=== PATIENT | female | born 1935 | race Caucasian/White ===

== ENCOUNTER 2021-03-01 01:20 | Inpatient (IN) | payer MEDICARE, SELFPAY ==
[2021-03-01] VITALS (23 sets, daily range): BP systolic 116–191; BP diastolic 45–83; PULSE 55–92; RESP 16–30; TEMP 35.6–36.8; O2SAT 89–100; BMI 27.5; BMI 27.4; BMI 27.8; BMI 27.7
--- NOTE | 2021-03-01 01:21 | ECG_ITS ---
APPROVED REPORT Exam: Resting ECG HR:80 bpm ECG Measurements Heart Rate 80 AXES AK 242 P 71 QRSd 162 QRS 99 QT 450 T -50 QTc 519 Conclusion Electronic ventricular pacemaker Electronically signed by : Santana Thorne, 03/01/2021 17:34:41
--- NOTE | 2021-03-01 02:14 | XR_ITS ---
PROCEDURE: XR CHEST PORTABLE CLINICAL HISTORY: SOB, low sats, recent PEs COMPARISON: No exams were available for comparison FINDINGS: There is a bipolar pacemaker present left subclavian approach. Normal heart size. Bilateral lower lobe pneumonia and/or atelectatic change. Small left pleural effusion. Faint increased density is present in the midlung zones on both sides No acute bony abnormalities. IMPRESSION: Bilateral pneumonia with small left pleural effusion Dictated by: Joey Elliott MD 03/01/2021 05:52 Joey Elliott MD in [place] 03/01/2021 05:52
[2021-03-01 02:16] LABS: ABG Oxygen Saturation 81 % (90-100); ABG PH 7.38 mmol/L (7.35-7.45); ABG TCO2 45.3 mmhg (23-27)
[2021-03-01 02:17] LABS: Allen's Test Acceptable
[2021-03-01 02:18] LABS: Oxygen 3L %; Source Right Radial
[2021-03-01 02:20] LABS: ABG PCO2 73.9 mmhg (35.0-45.0)
[2021-03-01 02:27] LABS: Basophils % 0.4 % (0.1-2.0); Eosinophils # 0.2 K/mm3 (0.0-0.4); Eosinophils % 2.5 % (0.1-12.0); Hematocrit 31.2 % (37.0-47.0); Hemoglobin 9.5 g/dL (12.2-16.2); Lymphocytes # 0.8 K/mm3 (0.7-4.5); Lymphocytes % 8.3 % (10-50); Mean Corpuscular HGB Conc 30.5 g/dL (31.8-35.4); Mean Corpuscular Hemoglobin 29.6 pg (27.0-31.2); Mean Corpuscular Volume 97.2 fl (81-99); Mean Platelet Volume 8.2 fl (7.4-10.4); Monocytes # 0.7 K/mm3 (0.1-1.0); Monocytes % 7.8 % (1.7-9.3); Neutrophils # 7.4 K/mm3 (1.8-7.8); Neutrophils % 80.9 % (37.0-80.0); Platelet Count 253 K/mm3 (142-424); Red Blood Count 3.21 M/mm3 (4.20-5.40); Red Cell Distribution Width 15.5 % (11.5-17.5); White Blood Count 9.1 K/mm3 (4.8-10.8)
[2021-03-01 02:35] LABS: Alanine Aminotransferase 15 U/L (12-78); Alkaline Phosphatase 66 U/L (38-126); Aspartate Amino Transferase 23 U/L (14-36); Bilirubin,Total 0.3 mg/dl (0.2-1.3); Blood Urea Nitrogen 13 mg/dl (7-17); Chloride 88 mmol/L (98-107); Creatinine Clearance Estimated 49 mL/min (50-200); Estimated Glomerular Filt Rate 80 ml/min (>60); GFR (African American) 96 ML/MIN (>60); Glucose 115 mg/dl (74-100); Lactic Acid 0.7 mmol/L (0.7-2.1); Potassium 3.8 mmoL/L (3.5-5.1); Sodium 133 mmol/L (136-145)
[2021-03-01 02:40] LABS: C-Reactive Protein 105.4 mg/L (0-4)
[2021-03-01 02:46] LABS: NT Pro Brain Natriuretic Pep. 4650 pg/mL (0-450)
[2021-03-01 02:46] LABS: Microscopic,Cath URINE MICROSCOPIC (MICROSCOPIC)
[2021-03-01 02:49] LABS: Appearance,Urine/Cath CLEAR (Clear); Bilirubin,Cath Negative (Negative); Blood, Urine/Cath Negative (Negative); Color,Urine/Cath YELLOW (Yellow); Glucose,Urine/Cath (UA) Negative (Negative); Ketones,Urine/Cath Negative (Negative); Leukocyte Esterase,Cath Negative (Negative); Nitrate,Cath Negative (Negative); Protein,Urine/Cath 1+ (Negative); Specific Gravity, Urine/Cath >= 1.030 (1.005-1.030); Urobilinogen,Cath 0.2 EU/dl (0.2)
[2021-03-01 02:53] LABS: Anion Gap 5.8 mEq/L (5-15); Procalcitonin 0.054 ng/mL (0.0-2.0); Troponin I < 0.01 ng/ml (0.00-0.034)
[2021-03-01 02:54] LABS: Carbon Dioxide 43 mmol/L (22.0-30.0)
[2021-03-01 03:02] LABS: Bacteria,Urine/Cath TRACE /lpf; Mucus,Urine/Cath 1+ /lpf; Yeast,Urine/Cath 1+
[2021-03-01 03:03] LABS: Erythrocyte Sedimentation Rate > 140 mm/hr (0-30)
--- NOTE | 2021-03-01 03:14 | PC.NURSE ---
Quentin confirmed with Darinel in Pharmacy
[2021-03-01 03:43] LABS: Adenovirus,PCR Not Detected (NotDetected); Bordetella Pertussis Not Detected (NotDetected); Chlamydophila Pneumoniae, PCR Not Detected (NotDetected); Coronavirus 19, PCR Not Detected (NotDetected); Coronavirus 229E Not Detected (NotDetected); Coronavirus NL63 Not Detected (NotDetected); Coronavirus OC43 Not Detected (NotDetected); Coronovirus HKU1,PCR Not Detected (NotDetected); Human Metapneumovirus Not Detected (NotDetected); Influenza A, PCR Not Detected (NotDetected); Influenza AH1, 2009 Not Detected (NotDetected); Influenza AH1, PCR Not Detected (NotDetected); Influenza AH3,PCR Not Detected (NotDetected); Influenza B, PCR Not Detected (NotDetected); Mycoplasma Pneumoniae, PCR Not Detected (NotDetected); Parainfluenza 1, PCR Not Detected (NotDetected); Parainfluenza 2, PCR Not Detected (NotDetected); Parainfluenza 3, PCR Not Detected (NotDetected); Parainfluenza 4, PCR Not Detected (NotDetected); Respiratory Syncytial Virus Not Detected (NotDetected); Rhinovirus/Enterovirus Not Detected (NotDetected)
[2021-03-01 04:07] LABS: ABG HCO3 39.4 mmhg (22.0-26.0); ABG Oxygen Saturation 96 % (90-100); ABG PH 7.36 mmol/L (7.35-7.45); ABG PO2 80.7 mmhg (80-100); ABG TCO2 41.6 mmhg (23-27)
[2021-03-01 04:08] LABS: Allen's Test y; Oxygen 45 %; Pressure Support 8
[2021-03-01 04:09] LABS: ABG PCO2 71.4 mmhg (35.0-45.0)
[2021-03-01 05:00] LABS: Troponin I < 0.01 ng/ml (0.00-0.034)
--- NOTE | 2021-03-01 05:30 | HMH.EDAMS ---
ED Disposition Clinical Impression: Acute exacerbation of chronic obstructive airways disease, Severe sepsis with acute organ dysfunction, Pacemaker Respiratory failure with hypercapnia Qualifiers: Chronicity: acute on chronic Qualified Code(s): J96.22 - Acute and chronic respiratory failure with hypercapnia Congestive heart failure Qualifiers: Heart failure type: unspecified Heart failure chronicity: acute on chronic Qualified Code(s): I50.9 - Heart failure, unspecified UTI (urinary tract infection) Qualifiers: Urinary tract infection type: site unspecified Hematuria presence: without hematuria Qualified Code(s): N39.0 - Urinary tract infection, site not specified Disposition: Admitted As Inpatient Condition on Discharge: Serious Referrals: Teddy Rudd [Primary Care Provider] - - Critical Care Critical Care Time: Yes Attestation: On 03/01/21, the high probability of a clinically significant, sudden or life threatening deterioration of the following system(s) required my full and direct attention, intervention and personal management. The time I documented below is in addition to time spent performing reported procedures but includes the following listed in this critical care notation. Total Critical Care Time: 60 Vital system(s) involved:: Respiratory Failure My critical care processes included: Assessment & monitoring of V/S, Initial and Re-exams, Data Review/Interpretation, Coordinating Care, Medication Orders and management, Documentation Medical Decision Making - Medical Records Medical records reviewed: Yes: I reviewed the patient's medical records. - Rogers Inquiry Pt receiving controlled substance: No Vital Signs: 03/01/21 01:20 03/01/21 02:00 03/01/21 02:30 Temperature 97.7 F 96.0 F L Temperature Source Oral Rectal Pulse Rate 60 84 Pulse Rate [Right] 60 Respiratory Rate 16 21 23 Blood Pressure 157/62 H 155/71 H Blood Pressure [Right Arm] 116/47 L Blood Pressure Mean 73 82 Blood Pressure Mean [Right Arm] 70 Blood Pressure Source [Right Arm] Automatic Cuff 02 Sat by Pulse Oximetry 96 89 L 100 Oxygen Delivery Method Nasal Cannula Nasal Cannula BiPAP Oxygen Flow Rate (LPM) 4 3 03/01/21 03:01 03/01/21 03:31 03/01/21 04:00 Temperature 96.8 F L Temperature Source Rectal Pulse Rate 72 62 63 Pulse Rate [Right] Respiratory Rate 22 23 24 Blood Pressure 120/45 L 122/52 L 119/42 L Blood Pressure [Right Arm] Blood Pressure Mean 70 60 53 Blood Pressure Mean [Right Arm] Blood Pressure Source [Right Arm] 02 Sat by Pulse Oximetry 97 95 Oxygen Delivery Method BiPAP BiPAP Oxygen Flow Rate (LPM) 03/01/21 04:30 Temperature Temperature Source Pulse Rate 62 Pulse Rate [Right] Respiratory Rate 24 Blood Pressure 138/53 L Blood Pressure [Right Arm] Blood Pressure Mean 63 Blood Pressure Mean [Right Arm] Blood Pressure Source [Right Arm] 02 Sat by Pulse Oximetry 94 L Oxygen Delivery Method BiPAP Oxygen Flow Rate (LPM) - Lab Data Lab results reviewed: Yes: I reviewed the patient's lab results. Lab Results 03/01/21 01:58: Urine Color Yellow, Urine Appearance Clear, Urine pH 6.0, Ur Specific [place] >= 1.030, Urine Protein 1+, Urine Glucose (UA) Negative, Urine Ketones Negative, Urine Blood Negative, Urine Nitrate Negative, Urine Bilirubin Negative, Urine Urobilinogen 0.2, Ur Leukocyte Esterase Negative, Urine WBC 3-5, Urine Bacteria Trace, Urine Yeast 1+ 03/01/21 02:14: Specimen Source Right radial, O2 % 3l, ABG pH 7.38, ABG pCO2 73.9 H, ABG pO2 45.0 L, ABG HCO3 43.0 H, ABG Total CO2 45.3 H, ABG O2 Saturation 81 L*, ABG Base Excess 18.0 H, Joey Test Acceptable 03/01/21 02:15: WBC 9.1, RBC 3.21 L, Hgb 9.5 L, Hct 31.2 L, MCV 97.2, MCH 29.6, MCHC 30.5 L, RDW 15.5, Plt Count 253, MPV 8.2, Neut % (Auto) 80.9 H, Lymph % (Auto) 8.3 L, [place] % (Auto) 7.8, Eos % (Auto) 2.5, Baso % (Auto) 0.4, Neut # (Auto) 7.4, Lymph # (Auto) 0.8, [place] # (Auto) 0.7, Eos # (Auto) 0.2, B
--- NOTE | 2021-03-01 05:40 | PC.NURSE ---
Dr. mcallister talking with Dr. Enriquez
--- NOTE | 2021-03-01 05:40 | PC.NURSE ---
Notified retail warehouse supervisorJeanine, for bed assignment
--- NOTE | 2021-03-01 06:08 | PC.NURSE ---
pt's daughter set up password- [email or web address]
--- NOTE | 2021-03-01 06:31 | PC.NURSE ---
Called 2nf fl and gave report to Italia Velasco RN
--- NOTE | 2021-03-01 06:41 | PC.WOUNDNOTE ---
PT ARRIVED TO FLOOR VIA STRETCHER FROM ED W/STAFF AT 0640
--- NOTE | 2021-03-01 07:24 | P.CONPHA_ITS ---
[facility] Pharmacy VTE Monitoring - Patient Demographics Admission date: 03/01/21 Report Date: 03/01/21 Time: 07:24 Allergies/Adverse Reactions: Patient Allergies amlodipine Allergy (Verified 03/01/21 06:58) bacitracin [From Neosporin ([id number])] Allergy (Verified 03/01/21 06:58) cephalexin [From Keflex] Allergy (Verified 03/01/21 06:58) hydrochlorothiazide Allergy (Verified 03/01/21 06:58) irbesartan Allergy (Verified 03/01/21 06:58) Latex, Natural Rubber Allergy (Verified 03/01/21 06:58) neomycin [From Neosporin ([id number]-[id number])] Allergy (Verified 03/01/21 06:58) oxycodone [From Percocet] Allergy (Verified 03/01/21 06:58) Penicillins Allergy (Verified 03/01/21 06:58) polymyxin B [From Neosporin ([id number])] Allergy (Verified 03/01/21 06:58) Sulfa (Sulfonamide Antibiotics) Allergy (Verified 03/01/21 06:58) telmisartan Allergy (Verified 03/01/21 06:58) Height: 1.6 m Weight: 71.305 kg Patient Problems: Current Active Problems Acute exacerbation of chronic obstructive airways disease (Acute) Respiratory failure with hypercapnia (Acute) Congestive heart failure (Acute) Severe sepsis with acute organ dysfunction (Acute) UTI (urinary tract infection) (Acute) Pacemaker (Acute) - VTE Risk Labs: VTE Related Lab Results Hgb 9.5 g/dL (12.2-16.2) L 03/01/21 02:15 Hct 31.2 % (37.0-47.0) L 03/01/21 02:15 Plt Count 253 K/mm3 (142-424) 03/01/21 02:15 BUN 13 mg/dl (7-17) 03/01/21 02:15 Creatinine 0.70 mg/dl (0.52-1.04) D 03/01/21 02:15 Estimated Creat Clear 49 mL/min (50-200) 03/01/21 02:15 - Prophylaxis VTE Prophylaxis Ordered?: Yes Types of VTE Prophylaxis: TEDS Knee High Location of Applied Device: Bilateral Lower Extremeties
--- NOTE | 2021-03-01 08:00 | CA_ITS ---
APPROVED REPORT EXAM: Comprehensive 2D, Doppler, and color-flow Echocardiogram Link Knitting Machine Operator: Isabelle Bardales RVT Ht: 5 ft 5 in Wt: 165lbs BSA: 1.82 BP: 119/42 mmHg Indications: CHF,PT ON BIPAP,RESP FAILURE,HTN,COPD,SOA,PACER 2D Dimensions LVOT 2.10 cm (M/F) 1.5-2.5 LVEF (Dominguez's) 62.00 % F: 54 - 74 LV Volume 124.00 mL F: 46 - 106 LV Volume Index 68.13 mL/m2 F: 29 - 61 LA Volume 49.00 mL LA Volume Index 26.92 mL/m2 (M/F) 16-34 M-Mode Dimensions RVDd 1.90 cm (0.9-2.6) LA Diam 4.10 cm (1.9-4.0) LVDd 5.20 cm (3.5-5.7) Ao Diam 2.70 cm (2.0-3.7) LVDs 3.80 cm (3.5-5.7) AV Cusp 1.90 cm (1.5-2.6) IVSd 1.30 cm (0.6-1.1) PWd 0.80 cm (0.6-1.1) EF (Teich) 52.30% FS 26.90% EDV (Teich) 130.00 mL ESV (Teich) 62.00 mL LV Diastology E/A Ratio 0.8 MED E' 4.39 (< 7 cm/sec) E'/MED E' Ratio 22.70 (>14) LAT E' 7.60 (<10 cm/sec) E/LAT E' Ratio 13.10 (>14) Aortic Valve AoV Peak Mariusz. 110.00 (50-130 cm/s) AO Peak GR. 5.00 mmHg Mitral Valve MV E Max Mariusz. 99.60 (40-130 cm/s) MV A Velocity 124.00 (40-130 cm/s) E/A Ratio 0.80 Tricuspid Valve TR P. Velocity 294.00 cm/s RAP Estimate 10.00 mmHg RVSP 45.00 mmHg Left Ventricle Left atrium is moderately enlarged, left ventricle is normal size, mild concentric left ventricular hypertrophy, visually estimated ejection fraction 55% with no regional wall motion abnormality. Grade 1 diastolic dysfunction seen with tissue Doppler evidence of raise left atrial pressure. Right Ventricle Right atrium and right ventricle are mildly enlarged with normal contractility, there is pacemaker leads in right atrium and right ventricle. Aortic Valve Aortic valve is minimally thickened and fibrosed, there is no aortic stenosis or aortic insufficiency. Mitral Valve Mitral valve has degenerative changes both in anterior and posterior mitral leaflet, there is no mitral stenosis, there is moderate mitral regurgitation. Tricuspid Valve Tricuspid valve leaflets are mildly thickened, there is mild tricuspid regurgitation, calculated right ventricular systolic pressure is 49 mmHg. Pulmonic Valve Pulmonic valve is poorly visualized. Great Vessels Aortic root is normal size. Pericardium No significant pericardial effusion noted. Conclusion 1. Biatrial enlargement, normal left ventricular size, mild concentric left ventricular hypertrophy, visually estimated ejection fraction 55% with no regional wall motion abnormality, grade 1 diastolic dysfunction seen with tissue Doppler evidence of raise left atrial pressure. 2. Mildly enlarged right ventricle with normal contractility. 3. Moderate mitral and mild tricuspid regurgitation, calculated right ventricular systolic pressure is 49 mmHg. 4. No significant pericardial effusion noted. Inferior vena cava is dilated without significant inspiratory collapse. Electronically signed by : Juanpablo Rodriguez, 03/02/2021 13:50:42
--- NOTE | 2021-03-01 09:27 | HMH.PHAINT ---
MEDICATION RECONCILIATION COMPLETED USING EXTERNAL FILL HISTORY AND SNF MAR
--- NOTE | 2021-03-01 10:24 | PC.NURSE ---
Dr. Machuca @ BS and ordered to switch Bipap to 3L NC and to obtain ABG. RT (Monique) @ BS. O2 sat 95% on 3L currently. Pt on tele with cont O2 sat. Dr. Machuca to enter order for swallow eval as pt reports dysphagia with liquids. Dr. Enriquez @ BS as well and ordered a reg soft mechanical diet.
--- NOTE | 2021-03-01 10:28 | HMH.PULMCON ---
*Admission Date: 03/01/21 *Reason for consult:: Acute hypoxic hypercarbic respiratory failure, history of hemoptysis. *History of present illness: Ms. summers is a 85-year-old female prior smoker last moved 25 years ago not using any inhalers or oxygen at baseline, recently admitted to an outside hospital hemoptysis status post completion of antibiotic course lymphedema present discharge from rehab presented to emergency room with worsening hypoxic hypercarbic respiratory failure and altered mentation and pulmonary was called for further management. [facility] History Medical History: Reports:: Atrial Fibrillation, Congestive Heart Failure, Hypertension, Internal Pacemaker, Urinary Tract Infection Denies:: Cancer, Diabetes Mellitus Type 1, Diabetes Mellitus Type 2, Lung Disease, MRSA, Seizures *Have you ever received a pneumonia vaccine?: No *Have you received a flu vaccine this season?: Yes Other Medical History: Reports: Other (Complete heart block, esophageal stricture) Other Surgeries: Yes: EGD, Pacemaker, Other (Bladder repair, esohpageal dilatation, Bronchoscopy) Amputation: No Fractures: No - *Social History Smoking Status: Former smoker Tobacco Type: cigarettes Alcohol Intake: never *Occupational Status:: retired Housing: longterm Household Members: caregiver *Travel in the last 8 weeks: None Family Hx:: Unable to obtain ROS - Cons Reports weakness - Card Reports shortness of breath, Reports shortness of breath with activity - Resp Respiratory: Reports chest congestion, Reports cough, Reports excessive phlegm production, Denies coughing up blood, Denies pain on inspiration, Reports pain with cough, Reports cough with sputum production - GI Gastrointestingal: Denies: abdominal pain Meds Home Medications Medication Instructions Recorded Confirmed Type carvediloL [Carvedilol 25mg Tab] 25 mg PO BID 09/12/18 03/01/21 History Albuterol Sulfate [Albuterol 1 vial IH Q6H PRN 03/01/21 03/01/21 History 0.083% 2.5mg/3mL neb] Aspirin 81 mg PO DAILY 03/01/21 03/01/21 History Docusate Sodium 100 mg PO BID 03/01/21 03/01/21 History Doxazosin Mesylate [Doxazosin 8mg 8 mg PO HS 03/01/21 03/01/21 History Tab] Ergocalciferol (Vitamin D2) 1 cap PO WEEKLY 03/01/21 03/01/21 History [Drisdol 50,000 units (1.25mg) capsule] Fluticasone Propionate [Flonase 2 spr NOSTRIL-B DAILY 03/01/21 03/01/21 History 50mcg nasal spray 16gm] Hydralazine HCl [Hydralazine HCl 25 mg PO TID 03/01/21 03/01/21 History 25mg Tablet] Ipratropium/Albuterol Sulfate 1 vial IH TID 03/01/21 03/01/21 History [Iprat-Albut 0.5-3(2.5) mg/3 ml] Allergies Allergy/AdvReac Type Severity Reaction Status Date / Time amlodipine Allergy Verified 03/01/21 06:58 bacitracin Allergy Verified 03/01/21 06:58 [From Neosporin ([id number])] cephalexin [From Keflex] Allergy Verified 03/01/21 06:58 hydrochlorothiazide Allergy Verified 03/01/21 06:58 irbesartan Allergy Verified 03/01/21 06:58 Latex, Natural Rubber Allergy Verified 03/01/21 06:58 neomycin Allergy Verified 03/01/21 06:58 [From Neosporin ([id number])] oxycodone [From Percocet] Allergy Verified 03/01/21 06:58 Penicillins Allergy Verified 03/01/21 06:58 polymyxin B Allergy Verified 03/01/21 06:58 [From Neosporin ([id number])] Sulfa (Sulfonamide Allergy Verified 03/01/21 06:58 Antibiotics) telmisartan Allergy Verified 03/01/21 06:58 Exam - Constitutional Constitutional:: Present: no acute distress, comfortable - HENMT Exam HENMT: Present: normocephalic, atraumatic - Neck Exam Neck:: Present: normal visual inspection - Respiratory Exam Respiratory:: Present: able to speak in complete sentences, respiratory distress, crackles, rales. Absent: wheezing - Cardiovascular Exam Cardiac:: Present: S1, S2 - GI Exam GI:: Present: soft - Skin Exam Skin: Present: warm, no rash - Neurological Exam Neurological:
--- NOTE | 2021-03-01 10:33 | FL_ITS ---
PROCEDURE: FL BARIUM SWALLOW MODIFIED CLINICAL INDICATION: Dysphagia COMPARISON: No exams were available for comparison TECHNIQUE: Patient administered varying consistencies of barium contrast, while viewed in lateral position under real-time fluoroscopy with cine recording. FLUOROSCOPY TIME:1 minutes and 58 seconds The study was performed in conjunction with speech pathologist. Please see that report & recommendations. FINDINGS: Patient was given varying consistencies of barium. No vestibular penetration or tracheal aspiration is evident. There is some early spillage.. IMPRESSION: Mild early spillage otherwise unremarkable modified barium swallow Please see speech pathologist report and recommendations. Dictated by: Joey Elliott MD 03/03/2021 18:46 Joey Elliott MD in [place] 03/03/2021 18:46
--- NOTE | 2021-03-01 10:50 | HMH.HP ---
*Admission Date: 03/01/21 <Aretha Hawthorne - 03/01/21 08:40> *Chief complaint: AMS <Aretha Hawthorne - 03/01/21 08:40> *History of present illness: Ms. Price is an 85-year-old female who presented to the emergency room from [facility] with altered mental status and history of lung disease. She was just recently discharged from [facility] on 02/24/2021 after admission for a cavitary lesion of the lung with massive hemoptysis. Prior to her [facility] hospitalization she was admitted at [facility] for hemoptysis in late January. She has a history of a pacemaker, chronic diastolic heart failure, esophageal stricture status post dilation, atrial fib, and hypertension. The patient had a CT scan on admission at [facility] which showed a small cavitary lesion in the left upper lobe and bronchiectasis in the lingula. A bronchoscopy was done on 02/16/2021. There was an apparent blood clot in the left upper lobe which was removed with cryotherapy. There was bleeding from the left upper lobe and an endotracheal geetha was placed in the left mainstem bronchus. She was placed on mechanical ventilation and transferred to the ICU. She did not have any hemoptysis for 72 hours. Her H&H remained stable. She was extubated on 02/18/21. She did have an E. coli/Klebsiella UTI and suspected pneumonia. She was initially started on cefepime which was switched to Rocephin and doxycycline. She received greater than 9 days of antibiotics, therefore she was not discharged on any additional antibiotics. She was discharged to [place] for rehab. She began having some altered mental status and was sent to the emergency room for evaluation. She was found to have a bilateral pneumonia along with sepsis and hypercapnia. She was admitted for further evaluation and treatment and placed on BiPAP due to hypercapnia. <Aretha Hawthorne 03/01/21 09:14> [facility] History I have reviewed the patient's past medical history: Yes <Aretha Hawthorne 03/01/21 08:40> Medical History: Reports:: Atrial Fibrillation, Congestive Heart Failure, Hypertension, Internal Pacemaker, Urinary Tract Infection Denies:: Diabetes Mellitus Type 1, Diabetes Mellitus Type 2, Lung Disease, Seizures <Aretha Hawthorne 03/01/21 09:14> *Have you ever received a pneumonia vaccine?: Yes <Aretha Hawthorne 03/01/21 08:40> *Have you received a flu vaccine this season?: Yes <Aretha Hawthorne 03/01/21 08:40> Other Medical History: Reports: Other (Complete heart block, esophageal stricture) <Aretha Hawthorne 03/01/21 09:14> Other Surgeries: Yes: Pacemaker, Other (Bladder repair, esohpageal dilatation, Bronchoscopy) <Aretha Hawhtorne 03/01/21 09:14> - *Social History Smoking Status: Former smoker <Aretha Hawthorne 03/01/21 09:14> Tobacco Type: cigarettes <Aretha Hawthorne 03/01/21 09:14> *Occupational Status:: retired <Aretha Hawthorne 03/01/21 09:14> *Travel in the last 8 weeks: None <Aretha Hawthorne 03/01/21 09:14> Family Hx:: Unable to obtain <Aretha Hawthorne 03/01/21 09:14> Review of Systems - Review of Systems Review of systems:: unable to obtain <Aretha Hawthorne 03/01/21 08:40> - *Neurologic Denies abnormal hearing, Denies seizure-like activity <Aretha Hawthorne 03/01/21 08:40> Meds Home Medications Medication Instructions Recorded Confirmed Type carvediloL [Carvedilol 25mg Tab] 25 mg PO BID 09/12/18 03/01/21 History Albuterol Sulfate [Albuterol 1 vial IH Q6H PRN 03/01/21 03/01/21 History 0.083% 2.5mg/3mL neb] Aspirin 81 mg PO DAILY 03/01/21 03/01/21 History Docusate Sodium 100 mg PO BID 03/01/21 03/01/21 History Doxazosin Mesylate [Doxazosin 8mg 8 mg PO HS 03/01/21 03/01/21 History Tab] Ergocalciferol (Vitamin D2) 1 cap PO WEEKLY 03/01/21 03/01/21 History [Drisdol 50,000 units (1.25mg) capsule] Fluticasone Propionate [Flonase 2 spr NOSTRIL-B DAILY 03/01/21 03/01/21 History 50mcg nasal spray 16gm] Hydralazine HCl [Hydralazine HCl 25 m
[2021-03-01 11:06] LABS: ABG Base Excess 14.7 mmol/L (-2.4-2.3); ABG HCO3 38.6 mmhg (22.0-26.0); ABG Oxygen Saturation 90 % (90-100); ABG PH 7.46 mmol/L (7.35-7.45); ABG PO2 52.9 mmhg (80-100); ABG TCO2 40.3 mmhg (23-27)
[2021-03-01 11:10] LABS: Allen's Test Patient Unable; Oxygen 3 LPM NC %; Source Left Radial
--- NOTE | 2021-03-01 11:14 | PC.NURSE ---
Notified Dr. Machuca of the following: pH 7.45, CO2 56, and pO2 52.9.
--- NOTE | 2021-03-01 13:01 | PC.NURSE ---
Sputum induced,pt unable to make productive cough. Specimen cup left at bedside.
--- NOTE | 2021-03-01 14:48 | HMH.SLMBS2 ---
Speech & Language Evaluation Speech/Language Mod Barium Swallow Start: 03/01/21 10:33 Freq: ONCE Status: Complete Protocol: Document 03/01/21 14:40 GÉNESIS (Rec: 03/01/21 14:48 GÉNESIS [id number]) General Information General Current Food Consistancy Mechanical Soft,Chopped Meats, Honey Liquids Dentition Upper Only Oxygen Status Nasal Cannula Facial Symmetry Symmetrical Patient Orientation Person,Place,Time Ability to Follow Directions Excellent Communication Ability No Impairment MBS Recommendations Diet Dietary Recommendations Dysphagia Mechanical Soft, Ground Meats,[place] Liquids Treatment/Strategies Treatment Recommendation Compens. Strategy Educat. Strategy/Precaution Recommend Sitting Upright (90 deg),Chin Tuck,Small Bites and Sips, Alternate Liquids/Solids Referrals/Other Recommended Referrals GI Consult Mod Barium Swallow Impressions Summary and Impressions Oral Phase Impression Mild Impairment Oral Phase Summary Ms. Nowak was given the following consistencies: honey via open cup, nectar via open cup, pudding, mechanical soft , and pill with nectar wash. Ms. Nowak exhibited decreased mastication time with mechanical soft. She only has upper dentures available here at [facility]. She reports her lower dentures are at the SNF. Pharyngeal Phase Impression Minimal Impairment Pharyngeal Phase Summary Premature spillage into laryngeal vestibule noted with large volume for pill bolus. Flash penetration noted with initial bolus of honey thick liquids and large volumes of nectar thick liquids. When chin tuck was implimented, swallow improved with no signs of flash penetration. Speech/Language MBS Assessment/Goals/Plan Assessment Date of Evaluation: 03/01/21 Evaluation Type Initial Certification Assessment/Problems Dysphagia Does Patient Qualify for Service No Qualify/Failure Comment Patient will be monitored for possible diet modifications Recommendations PHYSICIAN CERTIFICATION: The specified therapy services are required, authorized, and reviewed every 30 days. Diet Recomm
--- NOTE | 2021-03-01 16:21 | PC.NURSE ---
Trash and linens pulled
--- NOTE | 2021-03-01 17:01 | PC.NURSE ---
shift note: pt is A&O and pleasant. Is on 3L NC with O2 sat in high 90s. Walker cath noted with adequate UOP. Uses BSC for BMs. Had 1 large soft BM today. Is tolerating a mech soft diet with nectar thick liquids. Bilatera ankle 1+ edema noted. On tele: Sinus debra with BBB. Has pacemaker and is AV paced @ times. No other issues noted.
--- NOTE | 2021-03-01 18:18 | PC.NURSE ---
RA SATS WERE 87% RETURNED PT ON 3L NC
[2021-03-02] VITALS (9 sets, daily range): BP systolic 128–165; BP diastolic 54–80; PULSE 57–80; RESP 17–20; TEMP 36.3–37.1; O2SAT 92–98; BMI 27.8
--- NOTE | 2021-03-02 03:42 | PC.NURSE ---
Student nurse. Skyler Winter has performed care on this pt under my supervision. Pt is alert to self and time. Has had some difficulty this shift voicing where she is at times. VSS. Pt has remained on 3L O2 NC with sats in mid 90s. Lungs noted to have coarse crackles to anterior upper lobes. BS active. F/C draining to bedside. Medications administered per mar. Call light within reach. No other concerns. Will continue to monitor.
[2021-03-02 06:04] LABS: Basophils % 0.2 % (0.1-2.0); Eosinophils # 0.1 K/mm3 (0.0-0.4); Eosinophils % 0.8 % (0.1-12.0); Hematocrit 28.7 % (37.0-47.0); Lymphocytes # 0.7 K/mm3 (0.7-4.5); Lymphocytes % 7.5 % (10-50); Mean Corpuscular HGB Conc 31.3 g/dL (31.8-35.4); Mean Corpuscular Hemoglobin 30.2 pg (27.0-31.2); Mean Corpuscular Volume 96.5 fl (81-99); Mean Platelet Volume 8.5 fl (7.4-10.4); Monocytes # 0.7 K/mm3 (0.1-1.0); Monocytes % 8.2 % (1.7-9.3); Neutrophils # 7.6 K/mm3 (1.8-7.8); Neutrophils % 83.3 % (37.0-80.0); Platelet Count 286 K/mm3 (142-424); Red Blood Count 2.97 M/mm3 (4.20-5.40); White Blood Count 9.1 K/mm3 (4.8-10.8)
[2021-03-02 06:07] LABS: Chloride 92 mmol/L (98-107); Potassium 3.3 mmoL/L (3.5-5.1); Sodium 136 mmol/L (136-145)
[2021-03-02 06:10] LABS: Blood Urea Nitrogen 14 mg/dl (7-17); Calcium 8.5 mg/dl (8.4-10.2); Creatinine Clearance Estimated 46 mL/min (50-200); Estimated Glomerular Filt Rate 80 ml/min (>60); GFR (African American) 96 ML/MIN (>60); Glucose 113 mg/dl (74-100)
[2021-03-02 06:17] LABS: Anion Gap 8.3 mEq/L (5-15); Carbon Dioxide 39 mmol/L (22.0-30.0)
--- NOTE | 2021-03-02 08:49 | HMH.ACPN2 ---
<Aretha Hawthorne - Last Filed: 03/02/21 08:49> Internal Medicine - PN: Subj *Date: 03/02/21 *Time: 08:49 Interval history: Patient is feeling much better today. She is awake and alert. She denies any pain. She denies any shortness of breath. She states she did sleep well last night and was able to eat her breakfast this morning. Exam Vital signs and Labs for Last 24 Hours: Temp Pulse Resp BP Pulse Ox 98.2 F 79 20 156/64 H 95 03/02/21 08:00 03/02/21 08:00 03/02/21 08:00 03/02/21 08:00 03/02/21 08:00 Laboratory Results - last 24 hr 03/01/21 10:34: Specimen Source Left radial, O2 % 3 lpm nc, ABG pH 7.46 H, ABG pCO2 56.0 H, ABG pO2 52.9 L, ABG HCO3 38.6 H, ABG Total CO2 40.3 H, ABG O2 Saturation 90, ABG Base Excess 14.7 H, Joey Test Patient unable 03/02/21 05:34: WBC 9.1, RBC 2.97 L, Hgb 9.0 L, Hct 28.7 L, MCV 96.5, MCH 30.2, MCHC 31.3 L, RDW 16.0, Plt Count 286, MPV 8.5, Neut % (Auto) 83.3 H, Lymph % (Auto) 7.5 L, Trinity % (Auto) 8.2, Eos % (Auto) 0.8, Baso % (Auto) 0.2, Neut # (Auto) 7.6, Lymph # (Auto) 0.7, Trinity # (Auto) 0.7, Eos # (Auto) 0.1, Baso # (Auto) 0.0 03/02/21 05:34: Sodium 136, Potassium 3.3 L, Chloride 92 L, Carbon Dioxide 39 H, Anion Gap 8.3, BUN 14, Creatinine 0.70, Estimated Creat Clear 46, Estimated GFR 80, Est GFR ( Amer) 96, Glucose 113 H, Calcium 8.5 I & O for Last 24 hours: Intake & Output 02/27/21 02/28/21 03/01/21 03/02/21 11:59 11:59 11:59 11:59 Intake Total 3423 / 3423 Output Total 1075 / 1075 200 / 200 Balance -1075 / -1075 3223 / 3223 Weight 157 lb 3.2 oz 157 lb 2 oz Microbiology Reports for the Last 24 Hours: Microbiology 03/01/21 01:58 Urine,Catheterized Urine Culture - Preliminary - Constitutional no acute distress - *Routine Respiratory Exam Present: decreased breath sounds, rales (Bibasilar -improved from yesterday) - *Routine Cardiovascular Exam Present: RRR - *Routine Abdominal Exam Present: soft, normoactive bowel sounds. Absent: tenderness - *Routine Extremities Exam Absent: cyanosis, clubbing, edema - *Routine Skin Exam Present: warm. Absent: rash - *Routine Neurological Exam Present: alert, oriented X3 Assessment and Plan (1) Pneumonia Status: Acute Category: Medical Code(s): J18.9 - Pneumonia, unspecified organism (2) Respiratory failure with hypercapnia Status: Acute Qualifiers: Chronicity: acute on chronic Qualified Code(s): J96.22 - Acute and chronic respiratory failure with hypercapnia Category: Medical Code(s): J96.92 - Respiratory failure, unspecified with hypercapnia (3) Severe sepsis with acute organ dysfunction Status: Acute Category: Medical Code(s): A41.9 - Sepsis, unspecified organism; R65.20 - Severe sepsis without septic shock (4) COPD (chronic obstructive pulmonary disease) Status: Acute Category: Medical Code(s): J44.9 - Chronic obstructive pulmonary disease, unspecified (5) Chronic diastolic (congestive) heart failure Status: Acute Category: Medical Code(s): I50.32 - Chronic diastolic (congestive) heart failure (6) Hypertension Status: Chronic Category: Medical Code(s): I10 - Essential (primary) hypertension (7) Dysphagia Status: Acute Category: Medical Code(s): R13.10 - Dysphagia, unspecified - Assessment and plan all Dx Assessment and Plan for all problems:: Patient has improved. She is being followed by pulmonology. We will get a PICC line placed today for continued IV antibiotics. She will likely need an EGD as it is felt she may have an esophageal stricture again. Will consult Dr. Pretty. <Jacob Enriquez - Last Filed: 03/02/21 16:17> Internal Medicine - PN: Subj *Date: 03/02/21 *Time: 16:16 Exam Vital signs and Labs for Last 24 Hours: Temp Pulse Resp BP Pulse Ox 97.3 F L 63 17 152/70 H 92 L 03/02/21 12:00 03/02/21 12:00 03/02/21 12:00 03/02/21 12:00 03/02/21 12:00 Laboratory Results - las
--- NOTE | 2021-03-02 09:28 | XR_ITS ---
PROCEDURE: XR CHEST PORTABLE PICC PLAC CLINICAL HISTORY: Confirm PICC line placement COMPARISON: CR XR CHEST PORTABLE from 03/01/2021 FINDINGS: Left upper extremity PICC line has been inserted. Catheter is directed in the neck. The tip is not included on the images. Suggest withdrawing the catheter back 8 cm and then repositioning. Consolidation is present in both lower lobes with small bilateral pleural effusions. Bipolar pacemaker is present. IMPRESSION: Malpositioning of the PICC line from the left upper extremity approach. No change bilateral lower lobe pneumonia with effusions Dictated by: Joey Elliott MD 03/02/2021 16:26 Joey Elliott MD in [facility] 03/02/2021 16:26
--- NOTE | 2021-03-02 10:21 | HMH.PULMPN ---
Internal Medicine - PN: Subj *Date: 03/02/21 *Time: 10:21 Interval history: No acute respiratory vents overnight. Patient remained stable on nasal cannula oxygen supplementation. Exam - Constitutional Constitutional:: Present: no acute distress, comfortable - HENMT Exam HENMT: Present: normocephalic, atraumatic - Eye Exam Eyes:: Present: normal appearance both eyes and related structures - Neck Exam Neck:: Present: normal visual inspection - Respiratory Exam Respiratory:: Present: able to speak in complete sentences, no respiratory distress, normal respiratory effort, crackles. Absent: wheezing - Cardiovascular Exam Cardiac:: Present: S1, S2 - GI Exam GI:: Present: soft - Skin Exam Skin: Present: warm, no rash, dry - Neurological Exam Neurological: Present: alert, awake, normal cognition - Extremities Exam Extremities: Present: no cyanosis, no clubbing, no edema Assessment and Plan (1) Pneumonia Status: Acute Category: Medical Code(s): J18.9 - Pneumonia, unspecified organism (2) Respiratory failure with hypercapnia Status: Acute Qualifiers: Chronicity: acute on chronic Qualified Code(s): J96.22 - Acute and chronic respiratory failure with hypercapnia Category: Medical Code(s): J96.92 - Respiratory failure, unspecified with hypercapnia (3) Severe sepsis with acute organ dysfunction Status: Acute Category: Medical Code(s): A41.9 - Sepsis, unspecified organism; R65.20 - Severe sepsis without septic shock (4) COPD (chronic obstructive pulmonary disease) Status: Acute Category: Medical Code(s): J44.9 - Chronic obstructive pulmonary disease, unspecified (5) Chronic diastolic (congestive) heart failure Status: Acute Category: Medical Code(s): I50.32 - Chronic diastolic (congestive) heart failure (6) Hypertension Status: Chronic Category: Medical Code(s): I10 - Essential (primary) hypertension (7) Dysphagia Status: Acute Category: Medical Code(s): R13.10 - Dysphagia, unspecified - Assessment and plan all Dx Assessment and Plan for all problems:: #Hypoxic hypercarbic respiratory failure: #Hospital-acquired pneumonia: 85-year-old male prior smoker last smoked 25 years ago, not using any inhalers or oxygen at baseline until recently patient was presented for massive hemoptysis admitted to [facility] where she was intubated and bronchial geetha was placed with resolution of hemoptysis and CTA was performed that did not show any bleeding source for embolization and then patient eventually underwent IR angiogram and pulmonary selective that also did not identify any source of bleeding and patient was left intubated and eventually hemoptysis resolved and was patient discharged to rehab after completion of antibiotics. Patient BAL did not show any fungal or AFB elements on the preliminary staining. BAL cultures grew Enterobacter. Patient also noted to have UTI on that admission. Patient presented to the ER on this admission complaining of worsening respiratory failure and altered mentation and ABG on admission showed hypoxic hypercarbic respiratory failure. Patient not getting any nebulizer treatments on the rehab. CTA- Report: Noted to have diffuse atherosclerotic disease with around 50% subclavian artery stenosis. No PE noted. No contrast extravasation identified no adenopathy noted. Lung windows reported to have dense alveolar consolidation in the left upper lobe extending into the lingula as well as in the left lower lobe concerning for pneumonia secondary to aspiration. Patient denies any hemoptysis since discharge from [facility] Hemodynamically stable. No evidence of leukocytosis. Renal function within normal limits. Lactate normal. Etiology of this patient's hypoxic hypercarbic respiratory failure likely combination of pneumonia, obstructive lung disease and congestive heart failure with volume overload. Bilateral coarse breath sounds with crackles and lower e
--- NOTE | 2021-03-02 10:34 | SW/DCPLANNER ---
Addendum entered by Shayla Lo 03/03/21 11:45: PATIENT GOT A PICC LINE YESTERDAY AND WILL NEED A WEEK OF CEFEPIME 2 GRAMS Q 12 HRS X 7 DAYS... I HAVE INFORMED PUJAOBED MARILEE SHE WILL NEED THE ANTIBIOTICS.... Addendum entered by Shayla Lo 03/03/21 11:13: SENT UPDATED INFORMATION TO [facility] THIS MORNING, PT/OT AND SENT A MESSAGE TO DR PLUMMER TO SEE IF HE THINKS SHE WILL BE READY OVER THE WEEKEND IF AUTHORIZATION IS GRANTED... WAITING TO HEAR BACK FROM [facility] AND DR PLUMMER. Original Note: SENT UPDATED INFORMATION TO [facility] SINCE PATIENT IS A SKILLED PATIENT THERE... SHE IS NOT READY FOR A DISPOSITION AT THIS TIME BUT WHEN PATIENT BECOMES MORE MEDICALLY STABLE SHE WILL NEED A PT/OT CONSULT PRIOR TO RETURNING AND UTILIZING HER [facility] FOR APPROVAL... DISPOSITION UNCERTAIN...
--- NOTE | 2021-03-02 15:30 | HMH.PTEV ---
Physical Therapy Evaluation Rehab PT IP Evaluation Start: 03/02/21 13:07 Freq: .once Status: Active Protocol: Document 03/02/21 15:16 JONASALBERTO (Rec: 03/02/21 15:30 JAMISON [id number]) Subjective/History History History Ms. Price is an 85-year-old female who presented [place] the emergency room [place] [facility] [place] altered mental status and history of lung disease. She was just recently discharged from [facility] on 2020 after admission for a cavitary lesion of the lung with massive hemoptysis. Prior to her [facility] hospitalization she was admitted at [facility] for hemoptysis in late January. She has a history of a pacemaker, chronic diastolic heart failure, esophageal stricture status post dilation, atrial fib, and hypertension. Subjective Subjective Pt reports she is fatigued - reports she has been sitting up for a while Rehab PT IP Eval Objective Appearance Patient Behavior Appropriate,Cooperative Patient Orientation Person,Place,Time Difficulty following instructions none Speech Pattern Clear,Appropriate Ambulation Patient Able to Ambulate Yes Ambulation Observation IP General Gait Pattern Observation Shuffling Step Ambulation Distance (feet) 4 Ambulation Assistive Device None Ambulation Ability Moderate x 1 (50% assist) Balance Ability to Arise Unable Sitting Balance Steady, safe Standing Balance Unsteady Dynamic Sitting Balance Ability Fair Dynamic Standing Balance Ability Zero Transfers Sit to Stand Bed Transfer Ability Maximum x 1 (75% assist) Sit to Stand Chair Transfer Ability Maximum x 1 (75% assist) Rehab PT IP prob,goals,plan Problems Date of Evaluation: 03/02/21 PT IP Problems Bed Mobility,Transfers,Gait, Balance,Self care,Safety Rehab Potential Rehab Potential Poor Equipment Needs Assistive Devices Rolling / Wheeled Walker Plan PT Intervention Plan Bed Mobility,Transfers,Gait, Balance,Self care,Therapeutic
--- NOTE | 2021-03-02 15:40 | PC.NURSE ---
Patient has been up to chair for most of shift, daughter at bedside, remains on 3LNC, alert to person and place, vital signs have remained stable this shift, abbi rn attempting picc line placement at this time for IV abx, will continue to monitor.
--- NOTE | 2021-03-02 16:51 | XR_ITS ---
PROCEDURE: XR CHEST PORTABLE PICC PLAC CLINICAL HISTORY: PICC line placement COMPARISON: CR XR CHEST PORTABLE from 03/01/2021 CR XR CHEST PORTABLE PICC PLAC from 03/02/2021 FINDINGS: Left upper extremity PICC line has been reposition. The tip is difficult to visualize due to the overlying pacemaker wires but appears to be in the superior vena cava and no longer in the neck. No change in the bilateral lower lobe consolidation and effusions. IMPRESSION: Repositioned PICC line in good position Dictated by: Joey Elliott MD 03/02/2021 17:01 Joey Elliott MD in [facility] 03/02/2021 17:01
[2021-03-03] VITALS (13 sets, daily range): BP systolic 127–186; BP diastolic 54–68; PULSE 59–100; RESP 16–18; TEMP 36.4–36.8; O2SAT 90–98
--- NOTE | 2021-03-03 05:10 | PC.NURSE ---
Pt was titrated down to 2 L O2 NC t/o night but was not able to maintain O2 sats and had to be titrated back up to O2 3L NC. At 0445, pt was noted to be 84% on 3L nc. Pt also c/o soa. Respirations labored. VS obtained. Pt O2 rebounded quickly. 94% on 3L. BP 186/65, P 80. was notified of pt status. Lasix 40 mg IV ordered and carried out. Pt is currently NPO for GI consult in AM. Bed bath given via staff. Will continue to monitor.
--- NOTE | 2021-03-03 08:39 | HMH.ACPN2 ---
<Aretha Hawthorne - Last Filed: 03/03/21 08:39> Internal Medicine - PN: Subj *Date: 03/03/21 *Time: 08:39 Interval history: Patient is slightly confused this morning. She denies any pain or shortness of breath. She denies a cough. She states she rested off and on throughout the night and did eat some breakfast this morning. Exam Vital signs and Labs for Last 24 Hours: Temp Pulse Resp BP Pulse Ox 97.5 F L 60 16 127/60 94 L 03/03/21 07:48 03/03/21 07:48 03/03/21 07:48 03/03/21 07:48 03/03/21 07:48 I & O for Last 24 hours: Intake & Output 02/28/21 03/01/21 03/02/21 03/03/21 11:59 11:59 11:59 11:59 Intake Total 3423 / 3423 1016 / 1016 Output Total 1075 / 1075 400 / 400 3300 / 3300 Balance -1075 / -1075 3023 / 3023 -2284 / -2284 Weight 157 lb 3.2 oz 157 lb 2 oz Microbiology Reports for the Last 24 Hours: Microbiology 03/01/21 01:58 Urine,Catheterized Urine Culture - Preliminary Gram Positive Cocci 03/01/21 02:15 Blood Blood Culture - Preliminary NO GROWTH AFTER 48 HOURS 03/01/21 02:15 Blood Blood Culture - Preliminary NO GROWTH AFTER 48 HOURS - Constitutional no acute distress - *Routine Respiratory Exam Present: decreased breath sounds, rales (bilateral) - *Routine Cardiovascular Exam Present: RRR - *Routine Abdominal Exam Present: soft, normoactive bowel sounds. Absent: tenderness - *Routine Extremities Exam Absent: cyanosis, clubbing, edema - *Routine Skin Exam Present: warm. Absent: rash - *Routine Neurological Exam Present: alert slightly confused Assessment and Plan (1) Pneumonia Status: Acute Category: Medical Code(s): J18.9 - Pneumonia, unspecified organism (2) Respiratory failure with hypercapnia Status: Acute Qualifiers: Chronicity: acute on chronic Qualified Code(s): J96.22 - Acute and chronic respiratory failure with hypercapnia Category: Medical Code(s): J96.92 - Respiratory failure, unspecified with hypercapnia (3) Severe sepsis with acute organ dysfunction Status: Acute Category: Medical Code(s): A41.9 - Sepsis, unspecified organism; R65.20 - Severe sepsis without septic shock (4) COPD (chronic obstructive pulmonary disease) Status: Acute Category: Medical Code(s): J44.9 - Chronic obstructive pulmonary disease, unspecified (5) Chronic diastolic (congestive) heart failure Status: Acute Category: Medical Code(s): I50.32 - Chronic diastolic (congestive) heart failure (6) Hypertension Status: Chronic Category: Medical Code(s): I10 - Essential (primary) hypertension (7) Dysphagia Status: Acute Category: Medical Code(s): R13.10 - Dysphagia, unspecified - Assessment and plan all Dx Assessment and Plan for all problems:: Urine culture is growing gram-positive cocci. Blood cultures showed no growth. Patient's repeat chest x-ray still shows bilateral pneumonia. Patient's diet has been changed due to aspiration. Dr. Pretty has been consulted for possible EGD today with esophageal dilatation. Will continue antibiotics and await culture results. <Jacob Enriquez - Last Filed: 03/03/21 12:46> Internal Medicine - PN: Subj *Date: 03/03/21 *Time: 12:45 Exam Vital signs and Labs for Last 24 Hours: Temp Pulse Resp BP Pulse Ox 97.7 F 59 L 16 148/55 H 98 03/03/21 11:13 03/03/21 11:13 03/03/21 11:13 03/03/21 11:13 03/03/21 11:13 I & O for Last 24 hours: Intake & Output 03/01/21 03/02/21 03/03/21 03/04/21 11:59 11:59 11:59 11:59 Intake Total 3423 / 3423 1016 / 1016 Output Total 1075 / 1075 400 / 400 4300 / 4300 Balance -1075 / -1075 3023 / 3023 -3284 / -3284 Weight 157 lb 3.2 oz 157 lb 2 oz Microbiology Reports for the Last 24 Hours: Microbiology 03/01/21 01:58 Urine,Catheterized Urine Culture - Preliminary Gram
--- NOTE | 2021-03-03 10:41 | PC.NURSE ---
0800 tele strip reveals AV paced, ST depression, BBB, inverted T waves, and prolonged QT wave. Called Dr. Enriquez's office and notified Aretha ARNOLD. She will inform Dr. Enriquez and call back with any new orders.
--- NOTE | 2021-03-03 11:07 | HMH.OTEV ---
OT Inpatient Evaluation Rehab OT IP Evaluation Start: 03/02/21 13:07 Freq: ONCE Status: Complete Protocol: Document 03/03/21 10:02 ROMAN (Rec: 03/03/21 10:14 ROMAN [id number]) Rehab OT IP Assessment Subjective History *Admission Date: 03/01/21 < Aretha Hawthorne - 03/01/21 08:40 > *History of present illness: Ms. Price is an 85-year-old female who presented to the emergency room from [facility] with altered mental status and history of lung disease. She was just recently discharged from [facility] on 2020 after admission for a cavitary lesion of the lung with massive hemoptysis. Prior to her [facility] hospitalization she was admitted at [facility] for hemoptysis in late January. She has a history of a pacemaker, chronic diastolic heart failure, esophageal stricture status post dilation, atrial fib, and hypertension. The patient had a CT scan on admission at [facility] which showed a small cavitary lesion in the left upper lobe and bronchiectasis in the lingula. A bronchoscopy was done on 02/16/2021. There was an apparent blood clot in the left upper lobe which was removed with cryotherapy. There was bleeding from the left upper lobe and an endotracheal geetha was placed in the left mainstem bronchus. She was placed on mechanical ventilation and transferred to the ICU. She did not have any hemoptysis for 72 hours. Her H&H remained stable. She was extubated on 02/18/21. She did have an E. c
--- NOTE | 2021-03-03 11:08 | HMH.OTEV ---
OT Inpatient Evaluation Rehab OT IP Evaluation Start: 03/02/21 13:07 Freq: ONCE Status: Complete Protocol: Document 03/03/21 10:02 ROMAN (Rec: 03/03/21 10:14 ROMAN [id number]) Rehab OT IP Assessment Subjective History *Admission Date: 03/01/21 < Aretha Hawthorne - 03/01/21 08:40 > *History of present illness: Ms. Price is an 85-year-old female who presented to the emergency room from [facility] with altered mental status and history of lung disease. [facility] for a cavitary lesion of the lung with massive hemoptysis. Prior to her [facility] hospitalization she was admitted at [facility] for hemoptysis in late January. She has a history of a pacemaker, chronic diastolic heart failure, esophageal stricture status post dilation, atrial fib, and hypertension. The patient had a CT scan [facility] which showed a small cavitary lesion in the left upper lobe and bronchiectasis in the lingula. A bronchoscopy was done on 02/16/2021. There was an apparent blood clot in the left upper lobe which was removed with cryotherapy. There was bleeding from the left upper lobe and an endotracheal geetha was placed in the left mainstem bronchus. She was placed on mechanical ventilation and transferred to the ICU. She did not have any hemoptysis for 72 hours. Her H&H remained stable. She was extubated on 02/18/21. She did have an E. c
--- NOTE | 2021-03-03 13:16 | HMH.PULMPN ---
Internal Medicine - PN: Subj *Date: 03/03/21 *Time: 13:16 Interval history: No acute respiratory events overnight. Patient respiratory is continued to improve, wean to 2 L nasal cannula Exam - Constitutional Constitutional:: Present: no acute distress, comfortable - HENMT Exam HENMT: Present: normocephalic, atraumatic - Neck Exam Neck:: Present: normal visual inspection - Respiratory Exam Respiratory:: Present: able to speak in complete sentences, no respiratory distress, normal respiratory effort, crackles - Cardiovascular Exam Cardiac:: Present: S1, S2 - GI Exam GI:: Present: soft - Skin Exam Skin: Present: warm, no rash, dry - Neurological Exam Neurological: Present: alert, awake, normal cognition - Extremities Exam Extremities: Present: no cyanosis, no clubbing, no edema Assessment and Plan (1) Pneumonia Status: Acute Category: Medical Code(s): J18.9 - Pneumonia, unspecified organism (2) Respiratory failure with hypercapnia Status: Acute Qualifiers: Chronicity: acute on chronic Qualified Code(s): J96.22 - Acute and chronic respiratory failure with hypercapnia Category: Medical Code(s): J96.92 - Respiratory failure, unspecified with hypercapnia (3) Severe sepsis with acute organ dysfunction Status: Acute Category: Medical Code(s): A41.9 - Sepsis, unspecified organism; R65.20 - Severe sepsis without septic shock (4) COPD (chronic obstructive pulmonary disease) Status: Acute Category: Medical Code(s): J44.9 - Chronic obstructive pulmonary disease, unspecified (5) Chronic diastolic (congestive) heart failure Status: Acute Category: Medical Code(s): I50.32 - Chronic diastolic (congestive) heart failure (6) Hypertension Status: Chronic Category: Medical Code(s): I10 - Essential (primary) hypertension (7) Dysphagia Status: Acute Category: Medical Code(s): R13.10 - Dysphagia, unspecified - Assessment and plan all Dx Assessment and Plan for all problems:: #Hypoxic hypercarbic respiratory failure: #Hospital-acquired pneumonia: 85-year-old male prior smoker last smoked 25 years ago, not using any inhalers or oxygen at baseline until recently patient was presented for massive hemoptysis admitted to [facility] where she was intubated and bronchial geetha was placed with resolution of hemoptysis and CTA was performed that did not show any bleeding source for embolization and then patient eventually underwent IR angiogram and pulmonary selective that also did not identify any source of bleeding and patient was left intubated and eventually hemoptysis resolved and was patient discharged to rehab after completion of antibiotics. Patient BAL did not show any fungal or AFB elements on the preliminary staining. BAL cultures grew Enterobacter. Patient also noted to have UTI on that admission. Patient presented to the ER on this admission complaining of worsening respiratory failure and altered mentation and ABG on admission showed hypoxic hypercarbic respiratory failure. Patient not getting any nebulizer treatments on the rehab. CTA- Report: Noted to have diffuse atherosclerotic disease with around 50% subclavian artery stenosis. No PE noted. No contrast extravasation identified no adenopathy noted. Lung windows reported to have dense alveolar consolidation in the left upper lobe extending into the lingula as well as in the left lower lobe concerning for pneumonia secondary to aspiration. Patient denies any hemoptysis since discharge from [facility] Hemodynamically stable. No evidence of leukocytosis. Renal function within normal limits. Lactate normal. Etiology of this patient's hypoxic hypercarbic respiratory failure likely combination of pneumonia, obstructive lung disease and congestive heart failure with volume overload. Bilateral coarse breath sounds with crackles and lower extremity edema noted on examination. BNP elevated on admission. Patient on this hospital a
--- NOTE | 2021-03-03 14:53 | PC.NURSE ---
Dr. Pretty @ [facility]. No prodecural plans until atleast Saturday. He will re-evaluate then. Pt can be restarted on diet. Order entered.
--- NOTE | 2021-03-03 14:55 | HMH.GEROBB ---
Gastroenterology Consult Consult:: S: Mrs. Nowak is a an 85-year-old female who is well-known to me because of her recurrent dysphagia. She did have an EGD last on September 21, 2018 because of dysphagia. She also had an EGD with me in July 2010. Her last EGD showed some mild cricopharyngeal spasm and mild esophageal stenosis and was dilated up to 20 mm in the mid esophagus. She is admitted with sepsis and has significant comorbidities including diastolic heart failure, atrial fibrillation and oxygen requiring pulmonary failure. She did have a bronchoscopy on February 16, 2021 and there was a blood clot in the left upper lobe that was removed via cryotherapy. She had bleeding in the mainstem bronchus on the left. She was placed on mechanical ventilation and transferred to the ICU. She is still recovering and has bilateral pneumonia and oxygen requiring presently. She has had dysphagia. She did have a modified barium swallow on 03/01 which showed some esophageal stricturing. She has been on a pur?ed diet with liquids. O: Afebrile, still dyspneic Cardiovascular: Irregularly irregular Chest, wheezing, few rales in the lower bases reduced intake and oxygen requiring Abdomen normoactive bowel sounds, soft, scaphoid abdomen, nontender Labs/imaging: See chart A/P: 1. Recurrent dysphagia. Given the patient's pulmonary failure and sepsis, I would like to avoid propofol sedation since this is not critical or urgent. She can continue liquids/Ensure Plus or pur?ed diet and some soft mechanical. I will reassess on Saturday. If her cardiopulmonary status is improved we will likely do EGD with dilation in the near future but I would like to await improved stability especially from anesthesia standpoint. They have indicated that their preference would be to wait until this is stable as well unless it becomes urgent problem.
[2021-03-04] VITALS (14 sets, daily range): BP systolic 112–198; BP diastolic 52–89; PULSE 58–90; RESP 16–20; TEMP 36.4–36.7; O2SAT 88–95; BMI 27.4
--- NOTE | 2021-03-04 01:12 | PC.NURSE ---
She is A&O. She continues on O2 @ 2LPM n/c. She is voiding per f/c. Her urine is yellow, clear. She denies pain. She has been using the incentive spirometer has instructed. Left limb alert r/t to PICC in LUE.
[2021-03-04 07:03] LABS: Chloride 89 mmol/L (98-107); Sodium 139 mmol/L (136-145)
[2021-03-04 07:06] LABS: Blood Urea Nitrogen 15 mg/dl (7-17); Creatinine Clearance Estimated 46 mL/min (50-200); Estimated Glomerular Filt Rate 117 ml/min (>60); GFR (African American) 142 ML/MIN (>60)
[2021-03-04 07:07] LABS: Calcium 7.9 mg/dl (8.4-10.2); Glucose 105 mg/dl (74-100)
[2021-03-04 07:19] LABS: Anion Gap 9.9 mEq/L (5-15); Carbon Dioxide 43 mmol/L (22.0-30.0); Potassium 2.9 mmoL/L (3.5-5.1)
--- NOTE | 2021-03-04 07:19 | PC.NURSE ---
Dr. Enriquez notified of the following: K 2.9 and CO2 43
--- NOTE | 2021-03-04 08:00 | PC.NURSE ---
Received in report that pt had a fall this morning. Jade Meléndez RN reports that pt was getting back to bed from [facility] with assistance from tech (Trung Chapman) and slid down to the floor. Pt complains or right elbow and right hip pain. Dr. Enriquez was upated and no new orders received. When palpating both areas, pt states they are tender . No abrasions noted. Skin is intact. No bruising or redness noted.
--- NOTE | 2021-03-04 08:48 | HMH.ACPN2 ---
Internal Medicine - PN: Subj *Date: 03/04/21 *Time: 08:48 Interval history: Consult from Dr. Pretty noted and appreciated. She states she still has difficulty swallowing certain foods if they are too dry. Not having any problems with her medication. Consultation from Dr. Pretty yesterday as noted and appreciated. Patient slid to the floor beside her bed while being assisted to the bathroom this morning. She complains of some pain in the right elbow and right hip. Denies shortness of breath or cough. O2 sats are stable on 2 L of nasal cannula. Exam Vital signs and Labs for Last 24 Hours: Temp Pulse Resp BP Pulse Ox 97.9 F 63 17 116/68 93 L 03/04/21 07:35 03/04/21 07:35 03/04/21 07:35 03/04/21 07:35 03/04/21 07:35 Laboratory Results - last 24 hr 03/04/21 06:20: Sodium 139, Potassium 2.9 L*, Chloride 89 L, Carbon Dioxide 43 H*, Anion Gap 9.9, BUN 15, Creatinine 0.50 L D, Estimated Creat Clear 46, Estimated GFR 117, Est GFR ( Amer) 142 D, Glucose 105 H, Calcium 7.9 L I & O for Last 24 hours: Intake & Output 03/01/21 03/02/21 03/03/21 03/04/21 11:59 11:59 11:59 11:59 Intake Total 3423 / 3423 1016 / 1016 2042 / 2042 Output Total 1075 / 1075 400 / 400 4300 / 4300 2225 / 2225 Balance -1075 / -1075 3023 / 3023 -3284 / -3284 -183 / -183 Weight 157 lb 3.2 oz 157 lb 2 oz 155 lb 2 oz Microbiology Reports for the Last 24 Hours: Microbiology 03/01/21 01:58 Urine,Catheterized Urine Culture - Preliminary Staphylococcus hominis Narrative: She is sitting up in bed and appears in no distress. Chest with diminished breath sounds in the bases otherwise clear. Heart is regular. Abdomen is soft and nondistended with no unusual masses or tenderness. There is a faint bruise over the right olecranon. Range of motion of the elbow is normal. Lower extremities show trace ankle edema. Mild tenderness over the right greater trochanter. No bruising or deformity. Assessment and Plan (1) Pneumonia Status: Acute Category: Medical Code(s): J18.9 - Pneumonia, unspecified organism (2) Respiratory failure with hypercapnia Status: Acute Qualifiers: Chronicity: acute on chronic Qualified Code(s): J96.22 - Acute and chronic respiratory failure with hypercapnia Category: Medical Code(s): J96.92 - Respiratory failure, unspecified with hypercapnia (3) Severe sepsis with acute organ dysfunction Status: Acute Category: Medical Code(s): A41.9 - Sepsis, unspecified organism; R65.20 - Severe sepsis without septic shock (4) COPD (chronic obstructive pulmonary disease) Status: Acute Category: Medical Code(s): J44.9 - Chronic obstructive pulmonary disease, unspecified (5) Chronic diastolic (congestive) heart failure Status: Acute Category: Medical Code(s): I50.32 - Chronic diastolic (congestive) heart failure (6) Hypertension Status: Chronic Category: Medical Code(s): I10 - Essential (primary) hypertension (7) Dysphagia Status: Acute Category: Medical Code(s): R13.10 - Dysphagia, unspecified (8) Hypokalemia Status: Acute Category: Medical Code(s): E87.6 - Hypokalemia - Assessment and plan all Dx Assessment and Plan for all problems:: Continue IV cefepime and supplemental oxygen. CO2 is noted to be elevated and potassium is low at 2.9. Replace potassium today and repeat labs in the morning. Continue physical therapy.
--- NOTE | 2021-03-04 10:19 | HMH.ACPN ---
Internal Medicine - PN: Subj *Date: 03/04/21 *Time: 10:19 Exam Vital signs and Labs for Last 24 Hours: Temp Pulse Resp BP Pulse Ox 97.9 F 70 17 116/68 93 L 03/04/21 07:35 03/04/21 08:00 03/04/21 07:35 03/04/21 07:35 03/04/21 07:35 Laboratory Results - last 24 hr 03/04/21 06:20: Sodium 139, Potassium 2.9 L*, Chloride 89 L, Carbon Dioxide 43 H*, Anion Gap 9.9, BUN 15, Creatinine 0.50 L D, Estimated Creat Clear 46, Estimated GFR 117, Est GFR ( Amer) 142 D, Glucose 105 H, Calcium 7.9 L I & O for Last 24 hours: Intake & Output 03/01/21 03/02/21 03/03/21 03/04/21 23:59 23:59 23:59 23:59 Intake Total 2210 / 2210 2229 / 2229 1151 / 1151 891 / 891 Output Total 1075 / 1275 1500 / 1500 4925 / 5425 500 / 500 Balance 1135 / 935 729 / 729 -3774 / -4274 391 / 391 Weight 71 kg 71.271 kg 70.364 kg Microbiology Reports for the Last 24 Hours: Microbiology 03/01/21 01:58 Urine,Catheterized Urine Culture - Preliminary Staphylococcus hominis Assessment and Plan (1) Pneumonia Status: Acute Category: Medical Code(s): J18.9 - Pneumonia, unspecified organism (2) Respiratory failure with hypercapnia Status: Acute Qualifiers: Chronicity: acute on chronic Qualified Code(s): J96.22 - Acute and chronic respiratory failure with hypercapnia Category: Medical Code(s): J96.92 - Respiratory failure, unspecified with hypercapnia (3) Severe sepsis with acute organ dysfunction Status: Acute Category: Medical Code(s): A41.9 - Sepsis, unspecified organism; R65.20 - Severe sepsis without septic shock (4) COPD (chronic obstructive pulmonary disease) Status: Acute Category: Medical Code(s): J44.9 - Chronic obstructive pulmonary disease, unspecified (5) Chronic diastolic (congestive) heart failure Status: Acute Category: Medical Code(s): I50.32 - Chronic diastolic (congestive) heart failure (6) Hypertension Status: Chronic Category: Medical Code(s): I10 - Essential (primary) hypertension (7) Dysphagia Status: Acute Category: Medical Code(s): R13.10 - Dysphagia, unspecified (8) Hypokalemia Status: Acute Category: Medical Code(s): E87.6 - Hypokalemia The patient's infection will respond to the chosen ABx?: Yes Is the patient receiving the right drug, dose, and route?: Yes Could a more targeted ABx be ordered?: No (WBC WNL, AFEBRILE, STAPH IN URINE BUT NO SENSITIVITIES YET.)
[2021-03-05] VITALS (14 sets, daily range): BP systolic 132–167; BP diastolic 58–76; PULSE 56–106; RESP 18–19; TEMP 36.4–36.7; O2SAT 90–97; BMI 27.3
--- NOTE | 2021-03-05 03:09 | PC.NURSE ---
She has rested in bed. Denies pain. She continues on 2LPM n/c.
--- NOTE | 2021-03-05 05:16 | PC.NURSE ---
ice passed trash and linens picked up. pt had no other needs.KJaydaM
[2021-03-05 08:04] LABS: Chloride 92 mmol/L (98-107); Potassium 3.7 mmoL/L (3.5-5.1); Sodium 138 mmol/L (136-145)
[2021-03-05 08:07] LABS: Blood Urea Nitrogen 15 mg/dl (7-17); Creatinine Clearance Estimated 45 mL/min (50-200); Estimated Glomerular Filt Rate 117 ml/min (>60); GFR (African American) 142 ML/MIN (>60)
[2021-03-05 08:08] LABS: Calcium 8.5 mg/dl (8.4-10.2); Glucose 107 mg/dl (74-100)
[2021-03-05 08:20] LABS: Anion Gap 7.7 mEq/L (5-15)
[2021-03-05 08:21] LABS: Carbon Dioxide 42 mmol/L (22.0-30.0)
--- NOTE | 2021-03-05 08:22 | PC.NURSE ---
Dr. Enriquez notified that CO2 is 42
--- NOTE | 2021-03-05 08:37 | HMH.ACPN2 ---
Internal Medicine - PN: Subj *Date: 03/05/21 *Time: 08:37 Interval history: I feel better . States she rested well last night. Denies shortness of breath or cough. She sat up in the chair x4 hours yesterday. Legs still feel weak when up. Exam Vital signs and Labs for Last 24 Hours: Temp Pulse Resp BP Pulse Ox 97.7 F 70 19 152/76 H 90 L 03/05/21 07:45 03/05/21 08:00 03/05/21 07:45 03/05/21 07:45 03/05/21 07:45 Laboratory Results - last 24 hr 03/05/21 06:35: Sodium 138, Potassium 3.7 D, Chloride 92 L, Carbon Dioxide 42 H*, Anion Gap 7.7, BUN 15, Creatinine 0.50 L, Estimated Creat Clear 45, Estimated GFR 117, Est GFR ( Amer) 142, Glucose 107 H, Calcium 8.5 I & O for Last 24 hours: Intake & Output 03/02/21 03/03/21 03/04/21 03/05/21 11:59 11:59 11:59 11:59 Intake Total 3423 / 3423 1016 / 1016 2042 / 2042 1731 / 1731 Output Total 400 / 400 4300 / 4300 2225 / 2225 650 / 650 Balance 3023 / 3023 -3284 / -3284 -183 / -183 1081 / 1081 Weight 157 lb 2 oz 155 lb 2 oz 154 lb 4 oz Microbiology Reports for the Last 24 Hours: Microbiology 03/01/21 01:58 Urine,Catheterized Urine Culture - Preliminary Staphylococcus hominis Narrative: Alert and in no distress. Nasal oxygen at 2 L. Chest with diminished breath sounds in the bases. No wheezes. Heart is regular. Abdomen is soft and nondistended with no tenderness. Extremities no edema. Potassium 3.7 Assessment and Plan (1) Pneumonia Status: Acute Category: Medical Code(s): J18.9 - Pneumonia, unspecified organism (2) Respiratory failure with hypercapnia Status: Acute Qualifiers: Chronicity: acute on chronic Qualified Code(s): J96.22 - Acute and chronic respiratory failure with hypercapnia Category: Medical Code(s): J96.92 - Respiratory failure, unspecified with hypercapnia (3) Severe sepsis with acute organ dysfunction Status: Acute Category: Medical Code(s): A41.9 - Sepsis, unspecified organism; R65.20 - Severe sepsis without septic shock (4) COPD (chronic obstructive pulmonary disease) Status: Acute Category: Medical Code(s): J44.9 - Chronic obstructive pulmonary disease, unspecified (5) Chronic diastolic (congestive) heart failure Status: Acute Category: Medical Code(s): I50.32 - Chronic diastolic (congestive) heart failure (6) Hypertension Status: Chronic Category: Medical Code(s): I10 - Essential (primary) hypertension (7) Dysphagia Status: Acute Category: Medical Code(s): R13.10 - Dysphagia, unspecified (8) Hypokalemia Status: Acute Category: Medical Code(s): E87.6 - Hypokalemia - Assessment and plan all Dx Assessment and Plan for all problems:: Continue IV cefepime. Repeat chest x-ray today. Continue potassium replacement with oral supplement. Encourage out of bed activity. GI follow-up tomorrow. Seems to be tolerating her current diet.
--- NOTE | 2021-03-05 08:42 | XR_ITS ---
PROCEDURE: XR CHEST 2V CLINICAL HISTORY: f/u pneumonia COMPARISON: CR XR CHEST PORTABLE from 03/01/2021 CR XR CHEST PORTABLE PICC PLAC from 03/02/2021 CR XR CHEST PORTABLE PICC PLAC from 03/02/2021 FINDINGS: Left upper extremity PICC bipolar pacemaker remain in place. There is mild cardiomegaly without failure. Consolidation is present in both lower lobes consistent bilateral pneumonia with small bilateral effusions. Overall not significantly changed. No acute bony abnormalities. IMPRESSION: Bilateral lower lobe pneumonia and/or atelectatic change with small bilateral effusions not significantly changed Dictated by: Joey Elliott MD 03/05/2021 09:51 Joey Elliott MD in [facility] 03/05/2021 09:51
[2021-03-06] VITALS (24 sets, daily range): BP systolic 115–166; BP diastolic 47–86; PULSE 57–90; RESP 12–21; TEMP 36.3–36.7; O2SAT 91–99; BMI 26.9
--- NOTE | 2021-03-06 03:47 | PC.NURSE ---
pt has been resting well this shift. picc patent. vss. turn q2h. no complaints. will continue to monitor
[2021-03-06 06:41] LABS: Basophils % 0.7 % (0.1-2.0); Eosinophils # 0.5 K/mm3 (0.0-0.4); Eosinophils % 6.8 % (0.1-12.0); Hematocrit 30.6 % (37.0-47.0); Hemoglobin 9.2 g/dL (12.2-16.2); Lymphocytes # 0.8 K/mm3 (0.7-4.5); Lymphocytes % 12.2 % (10-50); Mean Corpuscular Hemoglobin 29.6 pg (27.0-31.2); Mean Corpuscular Volume 98.5 fl (81-99); Mean Platelet Volume 8.1 fl (7.4-10.4); Monocytes # 0.5 K/mm3 (0.1-1.0); Monocytes % 7.6 % (1.7-9.3); Neutrophils # 4.9 K/mm3 (1.8-7.8); Neutrophils % 72.7 % (37.0-80.0); Platelet Count 282 K/mm3 (142-424); Red Blood Count 3.11 M/mm3 (4.20-5.40); Red Cell Distribution Width 15.5 % (11.5-17.5); White Blood Count 6.7 K/mm3 (4.8-10.8)
[2021-03-06 06:53] LABS: Chloride 89 mmol/L (98-107); Sodium 138 mmol/L (136-145)
[2021-03-06 06:54] LABS: Potassium 3.4 mmoL/L (3.5-5.1)
[2021-03-06 06:56] LABS: Blood Urea Nitrogen 18 mg/dl (7-17); Creatinine Clearance Estimated 45 mL/min (50-200); Estimated Glomerular Filt Rate 95 ml/min (>60); GFR (African American) 115 ML/MIN (>60)
[2021-03-06 06:57] LABS: Calcium 8.3 mg/dl (8.4-10.2); Glucose 103 mg/dl (74-100)
[2021-03-06 07:31] LABS: Anion Gap 9.4 mEq/L (5-15); Carbon Dioxide 43 mmol/L (22.0-30.0)
--- NOTE | 2021-03-06 08:30 | HMH.ACPN2 ---
<Milana Ramos - Last Filed: 03/06/21 08:30> Internal Medicine - PN: Subj *Date: 03/06/21 *Time: 08:30 Interval history: Patient states that she did sleep last night. She denies shortness of breath but is on continuous O2. She denies chest pain. She states she does not have a very good appetite. She has been out of bed and sat in the chair most of the day yesterday. IVPatient states that she did sleep. Laboratory data this morning show hemoglobin of 9.2 and hematocrit of 30.6 with white blood cell count of 6700. Blood chemistries show sodium of 138 potassium 3.4 chloride 89. BUN is 18 with a creatinine of 0.6. Repeat chest x-ray yesterday 03/05/2021 with results as follows: IMPRESSION: Bilateral lower lobe pneumonia and/or atelectatic change with small bilateral effusions not significantly changed Exam Vital signs and Labs for Last 24 Hours: Temp Pulse Resp BP Pulse Ox 98.0 F 60 18 151/62 H 93 L 03/06/21 04:00 03/06/21 06:04 03/06/21 04:00 03/06/21 04:00 03/06/21 06:04 Laboratory Results - last 24 hr 03/06/21 05:30: WBC 6.7, RBC 3.11 L, Hgb 9.2 L, Hct 30.6 L, MCV 98.5, MCH 29.6, MCHC 30.0 L, RDW 15.5, Plt Count 282, MPV 8.1, Neut % (Auto) 72.7, Lymph % (Auto) 12.2, [place] % (Auto) 7.6, Eos % (Auto) 6.8, Baso % (Auto) 0.7, Neut # (Auto) 4.9, Lymph # (Auto) 0.8, [place] # (Auto) 0.5, Eos # (Auto) 0.5 H, Baso # (Auto) 0.0 03/06/21 05:30: Sodium 138, Potassium 3.4 L, Chloride 89 L, Carbon Dioxide 43 H*, Anion Gap 9.4, BUN 18 H, Creatinine 0.60, Estimated Creat Clear 45, Estimated GFR 95, Est GFR ( Amer) 115, Glucose 103 H, Calcium 8.3 L I & O for Last 24 hours: Intake & Output 03/03/21 03/04/21 03/05/21 03/06/21 11:59 11:59 11:59 11:59 Intake Total 1016 / 1016 2042 / 2042 1731 / 1731 560 / 560 Output Total 4300 / 4300 2225 / 2225 650 / 650 1750 / 1750 Balance -3284 / -3284 -183 / -183 1081 / 1081 -1190 / -1190 Weight 155 lb 2 oz 154 lb 4 oz 152 lb Microbiology Reports for the Last 24 Hours: Microbiology 03/01/21 02:15 Blood Blood Culture - Final NO GROWTH AFTER 5 DAYS 03/01/21 02:15 Blood Blood Culture - Final NO GROWTH AFTER 5 DAYS 03/01/21 01:58 Urine,Catheterized Urine Culture - Preliminary Staphylococcus hominis - Constitutional no acute distress - *Routine Respiratory Exam Present: diminished air movement (Posteriorly) - *Routine Cardiovascular Exam Present: RRR - *Routine Abdominal Exam Present: soft, normoactive bowel sounds. Absent: tenderness - *Routine Extremities Exam Absent: edema, calf tenderness - *Routine Neurological Exam Present: alert, oriented X3 Assessment and Plan (1) Pneumonia Status: Acute Category: Medical Code(s): J18.9 - Pneumonia, unspecified organism (2) Respiratory failure with hypercapnia Status: Acute Qualifiers: Chronicity: acute on chronic Qualified Code(s): J96.22 - Acute and chronic respiratory failure with hypercapnia Category: Medical Code(s): J96.92 - Respiratory failure, unspecified with hypercapnia (3) Severe sepsis with acute organ dysfunction Status: Acute Category: Medical Code(s): A41.9 - Sepsis, unspecified organism; R65.20 - Severe sepsis without septic shock (4) COPD (chronic obstructive pulmonary disease) Status: Acute Category: Medical Code(s): J44.9 - Chronic obstructive pulmonary disease, unspecified (5) Chronic diastolic (congestive) heart failure Status: Acute Category: Medical Code(s): I50.32 - Chronic diastolic (congestive) heart failure (6) Hypertension Status: Chronic Category: Medical Code(s): I10 - Essential (primary) hypertension (7) Dysphagia Status: Acute Category: Medical Code(s): R13.10 - Dysphagia, unspecified (8) Hypokalemia Status: Acute Category: Medical Code(s): E87.6 - Hypokalemia - Assessment and plan all Dx Assessment and
--- NOTE | 2021-03-06 08:55 | PC.NURSE ---
bedside report at [id number]
--- NOTE | 2021-03-06 08:56 | PC.NURSE ---
pt assessed at [id number]
--- NOTE | 2021-03-06 09:28 | SW/DCPLANNER ---
Addendum entered by [facility] 03/10/21 13:21: I have spoke with Danyell from [employer]: currently still waiting to hear back from authorization at this time. Addendum entered by [facility] 03/10/21 10:01: Updated patient information has been faxed to Danyell at [facility]. Addendum entered by [facility] 03/10/21 09:29: Currently waiting for prior auth per Danyell at [facility] before this patient can discharge back. I have informed Danyell that this patient is currently ready for discharge. Danyell has verified that she has ordered Bi-Pap for this patient once she returns to [facility]. Addendum entered by [facility] 03/09/21 10:09: CORRECTION: patient information has been cancelled to [employer]. Danyell has stated for me to fax her information/order and she will set patient up through their own company for Bi-Pap. I will continue to follow up with Danyell. Addendum entered by [facility] 03/09/21 09:48: Updated patient information has been faxed to [facility]. I have informed Danyell that patient could be ready for discharge tomorrow pending no setbacks. Patient will need a Bi-Pap at time of discharge: Danyell has confirmed patient can have this device at night at [facility]. Patient information/order has been faxed to [facility] for a Bi-Pap device. I will continue to follow up with [facility] and [facility]. Addendum entered by [facility] 03/08/21 15:01: Danyell with [facility] has stated that family continues to do bedhold. Addendum entered by [facility] 03/08/21 09:17: Updated patient information has been faxed to Danyell at [employer]. Danyell stated that she will speak with family today regarding continuing bedhold days. Addendum entered by [facility] 03/07/21 10:39: Dr Enriquez has stated that this patient will NOT discharge today. I will update Danyell with [employer]. Addendum entered by [facility] 03/07/21 09:06: This patient is stable for discharge today per Dr Enriquez. I have spoke with Danyell from [employer] and we are currently waiting for new authorization (Danyell stated should be today) and patient will need another COVID swab prior to discharge. I will continue to follow up with and Danyell from [employer]. Original Note: Updated patient information has been faxed to Danyell at [employer]. Danyell has stated that patient will need a new authorization prior to returning. I will follow up with Danyell once GI follows up with this patient today.
--- NOTE | 2021-03-06 11:29 | PC.NURSE ---
0800 notified that pt CO2 is 43. states he was already aware of results. no new orders.
[2021-03-06 12:30] LABS: Microscopic, Urine URINE MICROSCOPIC (MICROSCOPIC)
--- NOTE | 2021-03-06 12:54 | HMH.PULMPN ---
Internal Medicine - PN: Subj *Date: 03/06/21 *Time: 16:58 Interval history: No acute respiratory events overnight. Exam - Constitutional Constitutional:: Present: no acute distress, comfortable - HENMT Exam HENMT: Present: normocephalic, atraumatic - Eye Exam Eyes:: Present: eyelids normal - Neck Exam Neck:: Present: normal visual inspection - Respiratory Exam Respiratory:: Present: able to speak in complete sentences, no respiratory distress, normal respiratory effort, wheezing - Cardiovascular Exam Cardiac:: Present: S1, S2 - GI Exam GI:: Present: soft - Skin Exam Skin: Present: warm, no rash, dry - Neurological Exam Neurological: Present: alert, awake, normal cognition - Extremities Exam Extremities: Present: no cyanosis, no clubbing, no edema Assessment and Plan (1) Pneumonia Status: Acute Category: Medical Code(s): J18.9 - Pneumonia, unspecified organism (2) Respiratory failure with hypercapnia Status: Acute Qualifiers: Chronicity: acute on chronic Qualified Code(s): J96.22 - Acute and chronic respiratory failure with hypercapnia Category: Medical Code(s): J96.92 - Respiratory failure, unspecified with hypercapnia (3) Severe sepsis with acute organ dysfunction Status: Acute Category: Medical Code(s): A41.9 - Sepsis, unspecified organism; R65.20 - Severe sepsis without septic shock (4) COPD (chronic obstructive pulmonary disease) Status: Acute Category: Medical Code(s): J44.9 - Chronic obstructive pulmonary disease, unspecified (5) Chronic diastolic (congestive) heart failure Status: Acute Category: Medical Code(s): I50.32 - Chronic diastolic (congestive) heart failure (6) Hypertension Status: Chronic Category: Medical Code(s): I10 - Essential (primary) hypertension (7) Dysphagia Status: Acute Category: Medical Code(s): R13.10 - Dysphagia, unspecified (8) Hypokalemia Status: Acute Category: Medical Code(s): E87.6 - Hypokalemia - Assessment and plan all Dx Assessment and Plan for all problems:: #Hypoxic hypercarbic respiratory failure: #Hospital-acquired pneumonia: 85-year-old male prior smoker last smoked 25 years ago, not using any inhalers or oxygen at baseline until recently patient was presented for massive hemoptysis admitted to [facility] where she was intubated and bronchial geetha was placed with resolution of hemoptysis and CTA was performed that did not show any bleeding source for embolization and then patient eventually underwent IR angiogram and pulmonary selective that also did not identify any source of bleeding and patient was left intubated and eventually hemoptysis resolved and was patient discharged to rehab after completion of antibiotics. Patient BAL did not show any fungal or AFB elements on the preliminary staining. BAL cultures grew Enterobacter. Patient also noted to have UTI on that admission. Patient presented to the ER on this admission complaining of worsening respiratory failure and altered mentation and ABG on admission showed hypoxic hypercarbic respiratory failure. Patient not getting any nebulizer treatments on the rehab. CTA- Report: Noted to have diffuse atherosclerotic disease with around 50% subclavian artery stenosis. No PE noted. No contrast extravasation identified no adenopathy noted. Lung windows reported to have dense alveolar consolidation in the left upper lobe extending into the lingula as well as in the left lower lobe concerning for pneumonia secondary to aspiration. Patient denies any hemoptysis since discharge from [facility] Hemodynamically stable. No evidence of leukocytosis. Renal function within normal limits. Lactate normal. Etiology of this patient's hypoxic hypercarbic respiratory failure likely combination of pneumonia, obstructive lung disease and congestive heart failure with volume overload. Bilateral coarse breath sounds with crackles and lower extremity edema noted on examin
[2021-03-06 13:41] LABS: Appearance,Urine CLEAR (Clear); Bilirubin,Urine Negative (Negative); Blood, Urine Negative (Negative); Color,Urine STRAW (Yellow); Glucose,Urine (UA) Negative (Negative); Ketones,Urine Negative (Negative); Leukocyte Esterase,Urine Negative (Negative); Nitrate,Urine Negative (Negative); Protein,Urine Negative (Negative); Urobilinogen,Urine 0.2 EU/dl (0.2)
[2021-03-06 13:59] LABS: Bacteria,Urine Trace /lpf
--- NOTE | 2021-03-06 14:06 | HMH.PROC ---
[facility] Procedure Note Procedure Note:: Upper Endoscopy Procedure Report: Esophagogastroduodenoscopy with TTS balloon dilation Endoscopost: Angel Pretty II, MD Referring Physician: Michel Enriquez MD/Ja Rudd MD/Chase Machuca M.D. Date of Procedure: March 06, 2021 Equipment: Olympus GIF 190 standard upper endoscope Sedation: MAC sedation Indications: Mrs. Nowak is an 85-year-old female with a history of recurrent dysphagia. This occurs primarily in the retrohyoid region. She had an EGD with dilation in 2009 and then again in September 2018. 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 The patient has been admitted with some pulmonary failure and is on oxygen. EGD is performed for dilation. Procedure: Prior to the procedure, a history and physical exam was performed, and patient's medications and allergies were reviewed. The risks, benefits and alternatives of the sedation and procedure were discussed with the patient. All questions were answered and informed consent was obtained. The patient was brought to the procedure room. Patient identification and proposed procedure were verified by the physician and the nurse. The patient was placed in a left lateral decubitus position and the scope was passed under direct vision. Throughout the procedure, the patient's blood pressure, pulse, and oxygen saturations were monitored continuously. The upper GI endoscopy was accomplished without difficulty. The patient tolerated the procedure well. Findings: The scope was passed directly into the upper esophagus and advanced to the third portion of the duodenum. The post bulbar duodenum and duodenal bulb were normal with normal mucosa and conniventes. The scope was withdrawn through a normal duodenal bulb and pylorus into the stomach. The antrum body and fundus of the stomach was primarily normal with no mucosal abnormality. Upon retroflexion there was no hiatal hernia. The scope was then withdrawn into the esophagus. There was no evidence of reflux esophagitis, peptic stricture, Schatzki's ring or eosinophilic esophagitis. There was no stricturing. There was evidence of moderate esophageal dysmotility. The entire esophagus was dilated to 60 [place]/20 mm with a TTS hydrostatic balloon. There was mild resistance at the cricopharyngeus. The remainder of the esophageal mucosa was normal. Impression: 1. Cricopharyngeal spasm status post dilation to 20 mm 2. Nonerosive GERD with moderate esophageal dysmotility Plan: I do feel that the patient's swallowing difficulties are secondary to esophageal dysmotility and cricopharyngeal spasm. The patient may have some oropharyngeal dysphagia. 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
--- NOTE | 2021-03-06 14:40 | PC.NURSE ---
Oral airway pulled, airway remains patent
--- NOTE | 2021-03-06 15:11 | PC.NURSE ---
pt left unit prior to 1300 bp meds due. pt returned to floor at 1512. pt received versed and ketamine and is unable to have anything to eat or drink for a few hours. will give meds when able.
--- NOTE | 2021-03-06 15:46 | P.PN_ITS ---
[facility] Anesthesia Checklist - Patient Identification Patient Identification: Arm Band - Structural Data Admitted From: Inpatient Planned Operative Procedure/s: EGD Consent for Planned Operative Procedure(s) Verified: Yes Verified Documents: Surgical Consent, History and Physical - NPO Status Verified Time NPO: 00:00 - Additional verifications Anesthesia Reactions: No - Airway Assessment C-Spine Mobility Assessed: Yes TMJ Mobility Assessed: Yes Dentition: Good Dentition - Neurological Assessment Level of Consciousness: Awake, Alert - Anesthesia Plan Anesthesia Risk discussed: Yes Anesthesia Plan: Verified ASA Class: IV Anesthesia Type: MAC [facility] History Medical History: Reports:: Atrial Fibrillation, Congestive Heart Failure, Hypertension, Internal Pacemaker, Urinary Tract Infection Denies:: Cancer, Diabetes Mellitus Type 1, Diabetes Mellitus Type 2, Lung Disease, MRSA, Seizures *Have you ever received a pneumonia vaccine?: No *Have you received a flu vaccine this season?: Yes Other Medical History: Reports: Other (Complete heart block, esophageal stricture) Anesthesia experience/problems:: None Other Surgeries: Yes: EGD, Pacemaker, Other (Bladder repair, esohpageal dilatation, Bronchoscopy) Amputation: No Fractures: No - *Social History Smoking Status: Former smoker Tobacco Type: cigarettes Alcohol Intake: never Substance Use Type: denies use *Occupational Status:: retired Housing: penitentiary Household Members: caregiver *Travel in the last 8 weeks: None Family Hx:: Unable to obtain
--- NOTE | 2021-03-06 15:52 | PC.NURSE ---
assessed at 1530 when obtaining mac vitals
--- NOTE | 2021-03-06 16:26 | DIET.NUTRFU ---
Addendum entered by Kerry Espinosa 03/10/21 14:40: Doing better- 50-75%, no BM since 03/04, weight stable. No changes to diet/nutritional care plan, continuing to monitor. Addendum entered by Kerry Espinosa 03/08/21 15:11: Pt continues with poor intakes ~50% + BID supplements, does better when her daughter is here to assist. Continued assistance/encouragement at meal times appreciated. She notes she is scared to eat rt fear of choking. Diet edu for dysphagia reviewed. She likes strawberry ensure, increased to TID. Weight stable, bowel function normal, continuing to monitor. Original Note: PO intakes 50%, weight stable within 5#, pt has not had a BM since 03/01. GI consult/procedure today- pt's swallowing difficulty is rt esophageal dysmotility and cricopharyngeal spasm. Na restriction removed from diet order and BID supplements added, continuing to monitor.
--- NOTE | 2021-03-06 17:54 | PC.NURSE ---
Addendum entered by Maribell Macias RN 03/06/21 17:56: per post op staff, pt did have urinary incontinence while under sedation. Original Note: pt has rested since returning from scope. lungs still have audible crackles noted. no distress noted tho. family remained with pt most of the afternoon. pt is alert most of the time. will continue to monitor.
--- NOTE | 2021-03-06 18:14 | HMH.CONFU ---
Internal Medicine - PN: Subj *Date: 03/06/21 *Time: 18:14 Interval history: Patient continues to have dysphagia to solids and liquids. Her respiratory status has improved and her O2 sat is 91% on 2-1/2 L nasal cannula and she feels back to baseline. She has required multiple EGDs with esophageal dilations over the years and believes that she needs another one currently. She has been working with speech therapy at [place] due to her dysphagia symptoms. Exam Vital signs and Labs for Last 24 Hours: Temp Pulse Resp BP Pulse Ox 97.4 F L 70 16 166/86 H 95 03/06/21 14:44 03/06/21 16:00 03/06/21 14:44 03/06/21 14:44 03/06/21 14:44 Laboratory Results - last 24 hr 03/06/21 05:30: WBC 6.7, RBC 3.11 L, Hgb 9.2 L, Hct 30.6 L, MCV 98.5, MCH 29.6, MCHC 30.0 L, RDW 15.5, Plt Count 282, MPV 8.1, Neut % (Auto) 72.7, Lymph % (Auto) 12.2, [place] % (Auto) 7.6, Eos % (Auto) 6.8, Baso % (Auto) 0.7, Neut # (Auto) 4.9, Lymph # (Auto) 0.8, [place] # (Auto) 0.5, Eos # (Auto) 0.5 H, Baso # (Auto) 0.0 03/06/21 05:30: Sodium 138, Potassium 3.4 L, Chloride 89 L, Carbon Dioxide 43 H*, Anion Gap 9.4, BUN 18 H, Creatinine 0.60, Estimated Creat Clear 45, Estimated GFR 95, Est GFR ( Amer) 115, Glucose 103 H, Calcium 8.3 L 03/06/21 12:22: Urine Color Straw, Urine Appearance Clear, Urine pH 7.0, Ur Specific [place] 1.010, Urine Protein Negative, Urine Glucose (UA) Negative, Urine Ketones Negative, Urine Blood Negative, Urine Nitrate Negative, Urine Bilirubin Negative, Urine Urobilinogen 0.2, Ur Leukocyte Esterase Negative, Urine RBC None, Urine WBC 3-5, Ur Squamous Epith Cells 5-10, Urine Bacteria Trace I & O for Last 24 hours: Intake & Output 03/04/21 03/05/21 03/06/21 03/07/21 11:59 11:59 11:59 11:59 Intake Total 2042 1731 800 100 Output Total 2223 650 1750 700 Balance -183 1081 -950 -600 Weight 70.364 kg 69.967 kg 68.946 kg Microbiology Reports for the Last 24 Hours: Microbiology 03/01/21 02:15 Blood Blood Culture - Final NO GROWTH AFTER 5 DAYS 03/01/21 02:15 Blood Blood Culture - Final NO GROWTH AFTER 5 DAYS - Constitutional no acute distress, cooperative - *Routine HEENT Exam Head: Present: normocephalic, atraumatic - *Routine Neck Exam Present: full ROM - Routine Chest/Breast/Axilla Exam Chest wall: Absent: tenderness, mass - *Routine Respiratory Exam Present: accessory muscle use, prolonged expiratory phase, wheezes, diminished air movement - *Routine Cardiovascular Exam Present: Normal S1, Normal S2 - *Routine Abdominal Exam Present: soft. Absent: tenderness - *Routine Extremities Exam Present: edema - *Routine Skin Exam Present: intact, dry, warm - *Routine Neurological Exam Present: alert, altered mental status (mild but asking repetitive questions) Assessment and Plan (1) Pneumonia Status: Acute Category: Medical Code(s): J18.9 - Pneumonia, unspecified organism (2) Respiratory failure with hypercapnia Status: Acute Qualifiers: Chronicity: acute on chronic Qualified Code(s): J96.22 - Acute and chronic respiratory failure with hypercapnia Category: Medical Code(s): J96.92 - Respiratory failure, unspecified with hypercapnia (3) Severe sepsis with acute organ dysfunction Status: Acute Category: Medical Code(s): A41.9 - Sepsis, unspecified organism; R65.20 - Severe sepsis without septic shock (4) COPD (chronic obstructive pulmonary disease) Status: Acute Category: Medical Code(s): J44.9 - Chronic obstructive pulmonary disease, unspecified (5) Chronic diastolic (congestive) heart failure Status: Acute Category: Medical Code(s): I50.32 - Chronic diastolic (congestive) heart failure (6) Hypertension Status: Chronic Category: Medical Code(s): I10 - Essential (primary) hypertension (7) Dysphagia Status: Acute Category: Medical Code(s): R13.10 - Dysphagia, unspecified She
--- NOTE | 2021-03-06 20:36 | PC.NURSE ---
RA SATS 81%. TURN PT O2 BACK ON TO 2.5L N/C
[2021-03-07] VITALS (12 sets, daily range): BP systolic 132–194; BP diastolic 68–86; PULSE 50–100; RESP 18–33; TEMP 36.6–37.2; O2SAT 88–100; BMI 26.6
--- NOTE | 2021-03-07 04:04 | PC.NURSE ---
Pt A&O x3. Has not c/o any discomfort this shift. VSS. Pt O2 titrated from 3L O2 NC to 2.5 L O2 NC. Lungs diminished with fine crackles to (R) base. Pt has tolerated PO medications and [place] thick liquids. Pt follows directions well. BS active. No BM this shift. Purewick in place. Pt has not voided. Will attempt to place on bedpan or BSC this AM. Pt has been turned/repositioned Q2 h. Safety measures in place. Q30 min checks. No other concerns. Will continue to monitor.
--- NOTE | 2021-03-07 05:18 | PC.NURSE ---
Pt got up to BSC with assist x2 and voided. 250 ml urine output.
--- NOTE | 2021-03-07 07:56 | HMH.ACPN2 ---
<Milana Ramos - Last Filed: 03/07/21 07:56> Internal Medicine - PN: Subj *Date: 03/07/21 *Time: 07:56 Interval history: Patient states she feels okay this morning. She denies chest pain and shortness of breath. She feels she is eating without difficulty. She did sleep well. O2 sats ranged from 95-100 and currently she is on 2-1/2 L of oxygen per nasal cannula. Blood pressure has been periodically high and this morning is 149/68. Patient had an EGD per Dr. 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 He also noted that the patient's swallowing difficulties probably are secondary to esophageal dysmotility and cricopharyngeal spasm. He felt the patient may have some oropharyngeal dysphagia and pulmonary cachexia. Exam Vital signs and Labs for Last 24 Hours: Temp Pulse Resp BP Pulse Ox 97.9 F 60 18 149/68 H 95 03/07/21 07:47 03/07/21 07:47 03/07/21 07:47 03/07/21 07:47 03/07/21 07:47 Laboratory Results - last 24 hr 03/06/21 12:22: Urine Color Straw, Urine Appearance Clear, Urine pH 7.0, Ur Specific [place] 1.010, Urine Protein Negative, Urine Glucose (UA) Negative, Urine Ketones Negative, Urine Blood Negative, Urine Nitrate Negative, Urine Bilirubin Negative, Urine Urobilinogen 0.2, Ur Leukocyte Esterase Negative, Urine RBC None, Urine WBC 3-5, Ur Squamous Epith Cells 5-10, Urine Bacteria Trace I & O for Last 24 hours: Intake & Output 03/04/21 03/05/21 03/06/21 03/07/21 11:59 11:59 11:59 11:59 Intake Total 2042 / 2042 1731 / 1731 800 / 900 200 / 200 Output Total 2225 / 2225 650 / 650 1750 / 2450 950 / 950 Balance -183 / -183 1081 / 1081 -950 / -1550 -750 / -750 Weight 155 lb 2 oz 154 lb 4 oz 152 lb 150 lb - Constitutional no acute distress Comments: Awakened for assessment. She wishes to eat breakfast. - *Routine Respiratory Exam Present: diminished air movement (Posteriorly) Comments: Noted to be dyspneic with any exertion. - *Routine Cardiovascular Exam Present: RRR - *Routine Abdominal Exam Present: soft, normoactive bowel sounds. Absent: tenderness, distended - *Routine Extremities Exam Absent: edema, calf tenderness - *Routine Neurological Exam Present: alert, oriented X3 Assessment and Plan (1) Pneumonia Status: Acute Category: Medical Code(s): J18.9 - Pneumonia, unspecified organism (2) Respiratory failure with hypercapnia Status: Acute Qualifiers: Chronicity: acute on chronic Qualified Code(s): J96.22 - Acute and chronic respiratory failure with hypercapnia Category: Medical Code(s): J96.92 - Respiratory failure, unspecified with hypercapnia (3) Severe sepsis with acute organ dysfunction Status: Acute Category: Medical Code(s): A41.9 - Sepsis, unspecified organism; R65.20 - Severe sepsis without septic shock (4) COPD (chronic obstructive pulmonary disease) Status: Acute Category: Medical Code(s): J44.9 - Chronic obstructive pulmonary disease, unspecified (5) Chronic diastolic (congestive) heart failure Status: Acute Category: Medical Code(s): I50.32 - Chronic diastolic (congestive) heart failure (6) Hypertension Status: Chronic Category: Medical Code(s): I10 - Essential (primary) hypertension (7) Dysphagia Status: Acute Category: Medical Code(s): R13.10 - Dysphagia, unspecified (8) Hypokalemia Status: Acute Category: Medical Code(s): E87.6 - Hypokalemia - Assessment and plan all Dx Assessment and Plan for all problems:: We will transfer back to [facility] today. See discharge orders and discharge summary. <Jacob Enriquez - Last Filed: 03/07/21 17:21> Internal Medicine - PN: Subj *Date: 03/07/21 *Time: 17:17 Exam Vital signs and Labs for Last 24 Hours: Temp Pulse Resp BP Pulse Ox 98.3 F 66 20 132/70 96 03/07/21 14:53 03/07/21 14:53 03/07/21
--- NOTE | 2021-03-07 08:20 | HMH.DCSUM ---
General - General Admission date:: 03/01/21 <Jacob Enriquez - 03/24/21 08:48> 03/01/21 <Milana Ramos - 03/07/21 08:24> Discharge date: 03/07/21 <RichardMilana - 03/07/21 08:24> HPI HPI: Ms. Price is an 85-year-old female who presented to the emergency room from [facility] with altered mental status and history of lung disease. She was just recently discharged from [facility] on 02/24/2021 after admission for a cavitary lesion of the lung with massive hemoptysis. Prior to her [facility] hospitalization she was admitted at [facility] for hemoptysis in late January. She was noted to have a history of a pacemaker, chronic diastolic heart failure, esophageal stricture status post dilation, atrial fib, and hypertension. The patient had a CT scan on admission at [facility] which showed a small cavitary lesion in the left upper lobe and bronchiectasis in the lingula. A bronchoscopy was done on 02/16/2021. There was an apparent blood clot in the left upper lobe which was removed with cryotherapy. There was bleeding from the left upper lobe and an endotracheal geetha was placed in the left mainstem bronchus. She was placed on mechanical ventilation and transferred to the ICU. She did not have any hemoptysis for 72 hours. Her H&H remained stable. She was extubated on 02/18/21. She did have an E. coli/Klebsiella UTI and suspected pneumonia. She was initially started on cefepime which was switched to Rocephin and doxycycline. She received greater than 9 days of antibiotics; therefore she was not discharged on any additional antibiotics. She was discharged to [place] for rehab. She began having some altered mental status and was sent to the emergency room for evaluation. She was found to have a bilateral pneumonia along with sepsis and hypercapnia. She was admitted for further evaluation and treatment and placed on BiPAP due to hypercapnia. <Milana Ramos - 03/07/21 08:24> Hospital Course Hospital Course: On admission patient was placed on BiPAP briefly due to her hypercapnia and hypoxia. After admission she did stabilize and was able to tolerate nasal oxygen. She was started on scheduled duo nebs And also started on cefepime. She was noted to have a urinary tract infection which eventually grew out Staphylococcus hominis. She was hypokalemic and was started on potassium chloride as well as her blood pressure medicines.She had a modified barium swallow which showed some mild early spillage and otherwise was unremarkable. She was also seen by speech pathologist who noted mild impairment of the oral phase with recommendations for mechanical soft with thickened liquids. She had an EGD per Dr. 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 He felt the patient did have swallowing difficulty secondary to esophageal dysmotility and cricopharyngeal spasm and also possibly oropharyngeal dysphagia due to pulmonary cachexia. Patient was also followed by pulmonology with the following plan: - Follow with speech and GI recommendations - Continue nasal cannula to maintain O2 saturation goal of 88 to 92% - Continue cefepime for total of 7 days. - DuoNebs every 6 hours scheduled, patient can be discharged on LABA - LAMA inhaler therapy along with albuterol every 6 hours as needed - Volume optimization as per primary team Patient made gradual improvement although she continued to be dyspneic with exertion. She was out of bed daily. She did eat satisfactory. On patient's breathing was at baseline. She remained on oxygen at 2-1/2 L/min. Plan is for patient to be transferred back to [place] for ongoing rehab after insurance approval. Patient later in the a.m. became somnolent. ABGs obtained and she was in respiratory acidosis. She was placed back on BiPAP and will not be discharge
--- NOTE | 2021-03-07 09:25 | XR_ITS ---
PROCEDURE: XR CHEST PORTABLE CLINICAL HISTORY: dyspnea; lethargy COMPARISON: CR XR CHEST PORTABLE PICC PLAC from 03/02/2021 CR XR CHEST PORTABLE PICC PLAC from 03/02/2021 CR XR CHEST 2V from 03/05/2021 FINDINGS: Bipolar pacemaker is present from left subclavian approach. Consolidation is once again noted in both lower lobes with small bilateral pleural effusions. Overall no significant change. No acute bony abnormalities. IMPRESSION: No change bilateral pneumonia with small bilateral effusions Dictated by: Joey Elliott MD 03/07/2021 10:01 Joey Elliott MD in [facility] 03/07/2021 10:01
--- NOTE | 2021-03-07 09:47 | ECG_ITS ---
APPROVED REPORT Exam: Resting ECG HR:82 bpm ECG Measurements Heart Rate 82 AXES OH 80 P QRSd 172 QRS 107 QT 434 T -66 QTc 507 Conclusion Sinus rhythm with short OH with premature supraventricular complexes Rightward axis Left bundle branch block Abnormal ECG Electronically signed by : Santana Thorne, 03/09/2021 21:25:26
[2021-03-07 10:01] LABS: ABG Base Excess 30.4 mmol/L (-2.4-2.3); ABG HCO3 57.7 mmhg (22.0-26.0); ABG Oxygen Saturation 97 % (90-100); ABG PH 7.25 mmol/L (7.35-7.45); ABG PO2 98.4 mmhg (80-100); ABG TCO2 61.9 mmhg (23-27)
[2021-03-07 10:13] LABS: Basophils % 0.4 % (0.1-2.0); Eosinophils # 0.4 K/mm3 (0.0-0.4); Eosinophils % 6.1 % (0.1-12.0); Hematocrit 32.4 % (37.0-47.0); Hemoglobin 9.6 g/dL (12.2-16.2); Lymphocytes # 0.7 K/mm3 (0.7-4.5); Lymphocytes % 10.9 % (10-50); Mean Corpuscular HGB Conc 29.7 g/dL (31.8-35.4); Mean Corpuscular Hemoglobin 29.6 pg (27.0-31.2); Mean Corpuscular Volume 99.6 fl (81-99); Mean Platelet Volume 7.6 fl (7.4-10.4); Monocytes # 0.4 K/mm3 (0.1-1.0); Monocytes % 6.1 % (1.7-9.3); Neutrophils % 76.4 % (37.0-80.0); Platelet Count 253 K/mm3 (142-424); Red Blood Count 3.26 M/mm3 (4.20-5.40); Red Cell Distribution Width 15.2 % (11.5-17.5); White Blood Count 6.5 K/mm3 (4.8-10.8)
[2021-03-07 10:16] LABS: Chloride 86 mmol/L (98-107); Sodium 138 mmol/L (136-145)
[2021-03-07 10:18] LABS: ABG PCO2 136.2 mmhg (35.0-45.0); Allen's Test Patient Unable; Oxygen 2L NC %; Source Right Radial
[2021-03-07 10:19] LABS: Blood Urea Nitrogen 16 mg/dl (7-17); Calcium 8.6 mg/dl (8.4-10.2); Creatinine Clearance Estimated 44 mL/min (50-200); Estimated Glomerular Filt Rate 95 ml/min (>60); GFR (African American) 115 ML/MIN (>60); Glucose 152 mg/dl (74-100)
[2021-03-07 10:32] LABS: Carbon Dioxide 49 mmol/L (22.0-30.0); Troponin I < 0.01 ng/ml (0.00-0.034)
--- NOTE | 2021-03-07 10:57 | HMH.PULMPN ---
Internal Medicine - PN: Subj *Date: 03/07/21 *Time: 15:57 Interval history: No acute respiratory events overnight. Exam - Constitutional Constitutional:: Present: no acute distress, comfortable - HENMT Exam HENMT: Present: normocephalic, atraumatic - Eye Exam Eyes:: Present: normal appearance both eyes and related structures - Neck Exam Neck:: Present: normal visual inspection, thyroid normal - Respiratory Exam Respiratory:: Present: able to speak in complete sentences, lungs clear, no respiratory distress, normal respiratory effort - Cardiovascular Exam Cardiac:: Present: S1, S2 - GI Exam GI:: Present: soft - Skin Exam Skin: Present: warm, no rash - Neurological Exam Neurological: Present: alert, normal cognition - Extremities Exam Extremities: Present: no cyanosis, no clubbing, no edema Assessment and Plan (1) Pneumonia Status: Acute Category: Medical Code(s): J18.9 - Pneumonia, unspecified organism (2) Respiratory failure with hypercapnia Status: Acute Qualifiers: Chronicity: acute on chronic Qualified Code(s): J96.22 - Acute and chronic respiratory failure with hypercapnia Category: Medical Code(s): J96.92 - Respiratory failure, unspecified with hypercapnia (3) Severe sepsis with acute organ dysfunction Status: Acute Category: Medical Code(s): A41.9 - Sepsis, unspecified organism; R65.20 - Severe sepsis without septic shock (4) COPD (chronic obstructive pulmonary disease) Status: Chronic Category: Medical Code(s): J44.9 - Chronic obstructive pulmonary disease, unspecified (5) Chronic diastolic (congestive) heart failure Status: Chronic Category: Medical Code(s): I50.32 - Chronic diastolic (congestive) heart failure (6) Hypertension Status: Chronic Category: Medical Code(s): I10 - Essential (primary) hypertension (7) Dysphagia Status: Chronic Category: Medical Code(s): R13.10 - Dysphagia, unspecified (8) Hypokalemia Status: Acute Category: Medical Code(s): E87.6 - Hypokalemia - Assessment and plan all Dx Assessment and Plan for all problems:: #Hypoxic hypercarbic respiratory failure: #COPD Patient appeared to be lethargic this morning and the blood gas showed severe hypercarbic respiratory failure that improved with BiPAP treatments. Patient presented to the hospital with cardiac respiratory failure and altered mentation. Patient appeared to be a chronic retainer with normal pH and a PCO2 of 80. Her hypercarbic respiratory failure likely from a combination of COPD and decreased respiratory drive from higher oxygen saturations. The possibility of central/obstructive sleep apnea cannot be completely ruled out at this point of time. Plan: - Wean oxygen to maintain O2 saturations between 88 to 92% and not greater than 94% - We will initiate the patient on BiPAP therapy until sleep study evaluation given her recurrent hypercarbic respiratory failure - BiPAp at 14/8 at RR-14 and FiO2 35%. - Please schedule a in lab sleep testing post discharge #Hospital-acquired pneumonia: #Aspiration pneumonia 85-year-old male prior smoker last smoked 25 years ago, not using any inhalers or oxygen at baseline until recently patient was presented for massive hemoptysis admitted to [facility] where she was intubated and bronchial geetha was placed with resolution of hemoptysis and CTA was performed that did not show any bleeding source for embolization and then patient eventually underwent IR angiogram and pulmonary selective that also did not identify any source of bleeding and patient was left intubated and eventually hemoptysis resolved and was patient discharged to rehab after completion of antibiotics. Patient BAL did not show any fungal or AFB elements on the preliminary staining. BAL cultures grew Enterobacter at OSH. Patient also noted to have UTI on that admission that grew Stah.[email or web address] on this admission. CTA- Report: Noted to have diffuse atheroscler
--- NOTE | 2021-03-07 14:11 | PC.NURSE ---
MAP noted 03/01 @ 0331, 0400 and 0430 were noted to be incorrect.
[2021-03-07 14:13] LABS: ABG Base Excess 23.7 mmol/L (-2.4-2.3); ABG HCO3 48.6 mmhg (22.0-26.0); ABG Oxygen Saturation 96 % (90-100); ABG PO2 76.5 mmhg (80-100); ABG TCO2 51.1 mmhg (23-27)
[2021-03-07 14:20] LABS: Allen's Test ACCEPTABLE; Oxygen 40 %; Source R RADIAL; Tidal Volume BIPAP 18/6
[2021-03-07 14:21] LABS: ABG PCO2 80.8 mmhg (35.0-45.0)
--- NOTE | 2021-03-07 15:44 | PC.NURSE ---
Addendum entered by Payton Singh RN 03/07/21 16:11: CALLED AND STATED HE WANTED PT TO BE ON BIPAP AT NIGHT UNTIL PT IS ABLE TO HAVE A SLEEP STUDY. Original Note: PT IS RESTING IN BED. EARLY THIS MORNING PT WAS VERY SLUGGISH AND WAS STRUGGLING TO KEEP HER EYES OPEN WHILE TRYING TO HAVE A CONVERSATION. ALL VSS. PT WAS ABLE TO ANSWER QUESTIONS BUT WAS VERY SLOW TO RESPOND. QUINTON REDMOND NOTIFIED. NEW ORDERS RECEIVED. PT HAD CRITICAL ABG RESULTS WHICH REQUIRED PT TO GO BACK ON BIPAP. AFTER SEVERAL HOURS ON THE BIPAP PT WAS ABLE TO GO ON 1 L NC AND DID NOT WANT PT'S O2 SATURATION >94%. O2 HAD TO BE TURNED UP TO 2L B/C PT'S O2 SATURATION WAS MAINTAINING IN THE LOW 80'S ON 1 L. LUNG SOUNDS DIMINISHED WITH SCATTERED RHONCHI/WHEEZES WITH FINE CRACKLES IN THE ANTERIOR LUNG ESTRADA. PICC LINE NOTED TO THE KATHARINA. 2 ASSIST TO GET OUT TO THE CHAIR TO THE BED. PT NEEDS ENCOURAGEMENT TO TURN AND REPOSITION IN BED. PT DID BETTER TAKING HER PILLS THIS MORNING CRUSHED IN APPLESAUCE. BATH AND BED CHANGE THIS SHIFT. WILL CONTINUE TO MONITOR.
[2021-03-08] VITALS (10 sets, daily range): BP systolic 108–176; BP diastolic 50–71; PULSE 50–73; RESP 14–23; TEMP 36.4–36.8; O2SAT 87–96; BMI 26.8
--- NOTE | 2021-03-08 05:12 | PC.NURSE ---
Pt was placed on Bipap early in shift last night after noted to be desatting. Pt remained on Bipap most of shift and tolerated well. She is A&O x3 with periods of confusion noted this AM. She is currently on O2 2L NC with sats in lower 90s. VSS. Pt turned Q2 H. Medication administered per jan. Call light within reach. Safety measures in place. Will continue to monitor.
[2021-03-08 05:49] LABS: Chloride 88 mmol/L (98-107); Potassium 3.9 mmoL/L (3.5-5.1); Sodium 139 mmol/L (136-145)
[2021-03-08 05:52] LABS: Blood Urea Nitrogen 18 mg/dl (7-17); Creatinine Clearance Estimated 45 mL/min (50-200); Estimated Glomerular Filt Rate 80 ml/min (>60); GFR (African American) 96 ML/MIN (>60)
[2021-03-08 05:53] LABS: Calcium 8.6 mg/dl (8.4-10.2); Glucose 106 mg/dl (74-100)
[2021-03-08 06:01] LABS: Anion Gap 7.9 mEq/L (5-15)
[2021-03-08 06:02] LABS: Carbon Dioxide 47 mmol/L (22.0-30.0)
--- NOTE | 2021-03-08 06:26 | PC.NURSE ---
O2 sat 93%. O2 titrated down to 1L O2 NC.
--- NOTE | 2021-03-08 08:46 | HMH.ACPN2 ---
<Milana Ramos - Last Filed: 03/08/21 08:46> Internal Medicine - PN: Subj *Date: 03/08/21 *Time: 08:46 Interval history: Stayed with patient for about 30 to 45 minutes this a.m. Initially she was unable to be aroused after tactile and verbal stimulation. She was placed on BiPAP briefly after which she did awaken but was confused. She was placed back on O2 per nasal cannula at 1 L/min. She really cannot tell if she is short of breath. She does not think she has any pain. She does not know if she wants breakfast or not. Nursing notes indicate that she was on BiPAP for several hours during the night. Laboratory data this morning show a sodium of 139 and potassium of 3.9 and CO2 of 47. Chest x-ray 03/07/2021 showed no change in bilateral pneumonia with small bilateral effusions. Patient seen by Dr. Machuca with the following comments on 03/07/2021: Assessment and Plan for all problems:: #Hypoxic hypercarbic respiratory failure: #COPD Patient appeared to be lethargic this morning and the blood gas showed severe hypercarbic respiratory failure that improved with BiPAP treatments. Patient presented to the hospital with cardiac respiratory failure and altered mentation. Patient appeared to be a chronic retainer with normal pH and a PCO2 of 80. Her hypercarbic respiratory failure likely from a combination of COPD and decreased respiratory drive from higher oxygen saturations. The possibility of central/obstructive sleep apnea cannot be completely ruled out at this point of time. Plan: - Wean oxygen to maintain O2 saturations between 88 to 92% and not greater than 94% - We will initiate the patient on BiPAP therapy until sleep study evaluation given her recurrent hypercarbic respiratory failure - BiPAp at 14/8 at RR-14 and FiO2 35%. - Please schedule a in lab sleep testing post discharge Exam Vital signs and Labs for Last 24 Hours: Temp Pulse Resp BP Pulse Ox 98.3 F 62 18 123/71 87 L 03/08/21 08:00 03/08/21 08:00 03/08/21 08:00 03/08/21 08:00 03/08/21 08:00 Laboratory Results - last 24 hr 03/07/21 09:25: Specimen Source Right radial, O2 % 2l nc, ABG pH 7.25 L, ABG pCO2 136.2 H, ABG pO2 98.4, ABG HCO3 57.7 H, ABG Total CO2 61.9 H, ABG O2 Saturation 97, ABG Base Excess 30.4 H, Joey Test Patient unable 03/07/21 09:55: WBC 6.5, RBC 3.26 L, Hgb 9.6 L, Hct 32.4 L, MCV 99.6 H, MCH 29.6, MCHC 29.7 L, RDW 15.2, Plt Count 253, MPV 7.6, Neut % (Auto) 76.4, Lymph % (Auto) 10.9, Cotton % (Auto) 6.1, Eos % (Auto) 6.1, Baso % (Auto) 0.4, Neut # (Auto) 5.0, Lymph # (Auto) 0.7, Cotton # (Auto) 0.4, Eos # (Auto) 0.4, Baso # (Auto) 0.0 03/07/21 09:55: Sodium 138, Potassium 4.0, Chloride 86 L, Carbon Dioxide 49 H*, Anion Gap 7.0, BUN 16, Creatinine 0.60, Estimated Creat Clear 44, Estimated GFR 95, Est GFR ( Amer) 115, Glucose 152 H, Calcium 8.6, Troponin I < 0.01 03/07/21 10:56: Specimen Source R radial, O2 % 40, ABG pH 7.40, ABG pCO2 80.8 H, ABG pO2 76.5 L, ABG HCO3 48.6 H, ABG Total CO2 51.1 H, ABG O2 Saturation 96, ABG Base Excess 23.7 H, Joey Test Acceptable, Tidal Volume Bipap 18/6 03/08/21 05:35: Sodium 139, Potassium 3.9, Chloride 88 L, Carbon Dioxide 47 H*, Anion Gap 7.9, BUN 18 H, Creatinine 0.70, Estimated Creat Clear 45, Estimated GFR 80, Est GFR ( Amer) 96, Glucose 106 H D, Calcium 8.6 I & O for Last 24 hours: Intake & Output 03/05/21 03/06/21 03/07/21 03/08/21 11:59 11:59 11:59 11:59 Intake Total 1731 / 1731 800 / 900 320 / 320 240 / 240 Output Total 650 / 650 1750 / 2450 950 / 950 400 / 400 Balance 1081 / 1081 -950 / -1550 -630 / -630 -160 / -160 Weight 154 lb 4 oz 152 lb 150 lb 151 lb 8 oz Microbiology Reports for the Last 24 Hours: Microbiology 03/07/21 10:38 Nasopharyngeal Coronavirus COVID-19 PCR - Final 03/01/21 01:58 Urine,Catheterized Urine Culture - Preliminary Staphylococcus hominis - Constitutional somnolent - *Routine Respiratory Exam Present: crackles (B
[2021-03-08 08:51] LABS: ABG Base Excess 19.8 mmol/L (-2.4-2.3); ABG Oxygen Saturation 96 % (90-100); ABG PO2 76.9 mmhg (80-100); ABG TCO2 44.7 mmhg (23-27)
[2021-03-08 08:53] LABS: Oxygen 3L NC %
[2021-03-08 08:54] LABS: Allen's Test Acceptable; Source Right Radial
[2021-03-08 08:55] LABS: ABG PCO2 56.4 mmhg (35.0-45.0)
--- NOTE | 2021-03-08 10:54 | HMH.PULMPN ---
Internal Medicine - PN: Subj *Date: 03/08/21 *Time: 10:54 Interval history: No acute respiratory vents overnight Exam - Constitutional Constitutional:: Present: no acute distress, comfortable - HENMT Exam HENMT: Present: normocephalic, atraumatic - Eye Exam Eyes:: Present: normal appearance both eyes and related structures - Neck Exam Neck:: Present: normal visual inspection - Respiratory Exam Respiratory:: Present: able to speak in complete sentences, no respiratory distress, normal respiratory effort, wheezing - Cardiovascular Exam Cardiac:: Present: S1, S2 - GI Exam GI:: Present: soft - Skin Exam Skin: Present: warm, no rash - Neurological Exam Neurological: Present: alert, normal cognition - Extremities Exam Extremities: Present: no cyanosis, no clubbing, no edema Assessment and Plan (1) Pneumonia Status: Acute Category: Medical Code(s): J18.9 - Pneumonia, unspecified organism (2) Respiratory failure with hypercapnia Status: Acute Qualifiers: Chronicity: acute on chronic Qualified Code(s): J96.22 - Acute and chronic respiratory failure with hypercapnia Category: Medical Code(s): J96.92 - Respiratory failure, unspecified with hypercapnia (3) Severe sepsis with acute organ dysfunction Status: Acute Category: Medical Code(s): A41.9 - Sepsis, unspecified organism; R65.20 - Severe sepsis without septic shock (4) COPD (chronic obstructive pulmonary disease) Status: Chronic Category: Medical Code(s): J44.9 - Chronic obstructive pulmonary disease, unspecified (5) Chronic diastolic (congestive) heart failure Status: Chronic Category: Medical Code(s): I50.32 - Chronic diastolic (congestive) heart failure (6) Hypertension Status: Chronic Category: Medical Code(s): I10 - Essential (primary) hypertension (7) Dysphagia Status: Chronic Category: Medical Code(s): R13.10 - Dysphagia, unspecified (8) Hypokalemia Status: Acute Category: Medical Code(s): E87.6 - Hypokalemia - Assessment and plan all Dx Assessment and Plan for all problems:: #Hypoxic hypercarbic respiratory failure: #COPD Patient appeared to be lethargic this morning and the blood gas showed severe hypercarbic respiratory failure that improved with BiPAP treatments. Patient presented to the hospital with cardiac respiratory failure and altered mentation. Patient appeared to be a chronic retainer with normal pH and a PCO2 of 80. Her hypercarbic respiratory failure likely from a combination of COPD and decreased respiratory drive from higher oxygen saturations. The possibility of central/obstructive sleep apnea cannot be completely ruled out at this point of time. Given recurrent hypercarbic respiratory failures with altered mentation despite being in the hospital plan was made to initiate the patient on BiPAP awaiting sleep evaluation. Patient was initiated on nightly BiPAP patient was started on 04/28 yesterday night with respiratory alkalosis this morning. We will change the settings to IPAP of 6 and EPAP of 14 and continue BiPAP nightly until sleep study evaluation Plan: - Wean oxygen to maintain O2 saturations between 88 to 92% and not greater than 94% - We will initiate the patient on BiPAP therapy until sleep study evaluation given her recurrent hypercarbic respiratory failure - BiPAp at IPAP of 6 and EPAP of 14 at RR-14 and FiO2 35%. -DuoNebs every 6 hours scheduled along with budesonide every 12 scheduled, patient should be discharged on triple inhaler therapy - Please schedule a in lab sleep testing post discharge #Hospital-acquired pneumonia: #Aspiration pneumonia 85-year-old male prior smoker last smoked 25 years ago, not using any inhalers or oxygen at baseline until recently patient was presented for massive hemoptysis admitted to [facility] where she was intubated and bronchial geetha was placed with resolution of hemoptysis. Patient had a bronchoscopy and BAL performed during a
--- NOTE | 2021-03-08 18:08 | PC.NURSE ---
PT IS RESTING IN BED. TOLERATED SITTING UP IN THE CHAIR FOR SEVERAL HOURS THIS SHIFT. PT HAS BEEN CONFUSED OFF AND ON T/O THE SHIFT. O2 SATURATION HAS MAINTAINED 92-95% ON 2 L NC. LUNG SOUNDS DIMINISHED WITH FINE CRACKLES IN THE ANTERIOR LUNG ESTRADA. ABDOMEN SOFT/NON TENDER WITH ACTIVE BOWEL SOUNDS. NO SWELLING NOTED TO BLE. PICC LINE DRESSING WAS CHANGED THIS SHIFT. PT WAS ABLE TO GET UP TO THE BSC AND HAVE A BOWEL MOVEMENT THIS SHIFT. VSS. WILL CONTINUE TO MONITOR.
[2021-03-09] VITALS (11 sets, daily range): BP systolic 100–188; BP diastolic 40–71; PULSE 54–92; RESP 12–21; TEMP 36.5–36.9; O2SAT 90–98; BMI 26.8
--- NOTE | 2021-03-09 04:32 | PC.NURSE ---
pt has worn bipap throughout the night while sleeping. q2h turn. no acute changes. call light in reach. bed alarm in place. picc line in place. vss. will continue to monitor
[2021-03-09 06:01] LABS: Basophils % 0.6 % (0.1-2.0); Eosinophils # 0.3 K/mm3 (0.0-0.4); Eosinophils % 5.4 % (0.1-12.0); Hematocrit 28.9 % (37.0-47.0); Lymphocytes % 17.4 % (10-50); Mean Corpuscular HGB Conc 31.2 g/dL (31.8-35.4); Mean Corpuscular Hemoglobin 29.9 pg (27.0-31.2); Mean Corpuscular Volume 95.7 fl (81-99); Mean Platelet Volume 7.6 fl (7.4-10.4); Monocytes # 0.4 K/mm3 (0.1-1.0); Monocytes % 7.3 % (1.7-9.3); Neutrophils # 4.1 K/mm3 (1.8-7.8); Neutrophils % 69.3 % (37.0-80.0); Platelet Count 234 K/mm3 (142-424); Red Blood Count 3.02 M/mm3 (4.20-5.40); Red Cell Distribution Width 15.7 % (11.5-17.5); White Blood Count 5.9 K/mm3 (4.8-10.8)
[2021-03-09 06:09] LABS: Chloride 89 mmol/L (98-107); Potassium 3.3 mmoL/L (3.5-5.1); Sodium 137 mmol/L (136-145)
[2021-03-09 06:12] LABS: Alanine Aminotransferase 13 U/L (12-78); Albumin Level 2.8 g/dl (3.5-5.0); Alkaline Phosphatase 57 U/L (38-126); Aspartate Amino Transferase 26 U/L (14-36); Bilirubin,Total 0.5 mg/dl (0.2-1.3); Blood Urea Nitrogen 15 mg/dl (7-17); Creatinine Clearance Estimated 45 mL/min (50-200); Estimated Glomerular Filt Rate 95 ml/min (>60); GFR (African American) 115 ML/MIN (>60); Globulin 2.8 g/dL (1.3-3.2); Total Protein,Serum 5.6 g/dl (6.3-8.2)
[2021-03-09 06:13] LABS: Calcium 8.5 mg/dl (8.4-10.2); Glucose 95 mg/dl (74-100)
[2021-03-09 06:25] LABS: Anion Gap 6.3 mEq/L (5-15)
[2021-03-09 06:26] LABS: Carbon Dioxide 45 mmol/L (22.0-30.0)
--- NOTE | 2021-03-09 07:25 | PC.NURSE ---
on coming nurse notified of lab result CO2 45 to be reported to MD on rounds
--- NOTE | 2021-03-09 08:45 | HMH.ACPN2 ---
<Aretha Hawthorne - Last Filed: 03/09/21 08:45> Internal Medicine - PN: Subj *Date: 03/09/21 *Time: 08:45 Interval history: Patient states she is feeling better today. She denies any shortness of breath. She states she ate a decent breakfast this morning and slept well last night. She denies any pain. Exam Vital signs and Labs for Last 24 Hours: Temp Pulse Resp BP Pulse Ox 97.7 F 88 20 100/55 L 95 03/09/21 08:00 03/09/21 08:00 03/09/21 08:00 03/09/21 08:00 03/09/21 08:00 Laboratory Results - last 24 hr 03/08/21 08:47: Specimen Source Right radial, O2 % 3l nc, ABG pH 7.50 H, ABG pCO2 56.4 H, ABG pO2 76.9 L, ABG HCO3 43.0 H, ABG Total CO2 44.7 H, ABG O2 Saturation 96, ABG Base Excess 19.8 H, Joey Test Acceptable 03/09/21 05:44: WBC 5.9, RBC 3.02 L, Hgb 9.0 L, Hct 28.9 L, MCV 95.7, MCH 29.9, MCHC 31.2 L, RDW 15.7, Plt Count 234, MPV 7.6, Neut % (Auto) 69.3, Lymph % (Auto) 17.4, Hall % (Auto) 7.3, Eos % (Auto) 5.4, Baso % (Auto) 0.6, Neut # (Auto) 4.1, Lymph # (Auto) 1.0, Hall # (Auto) 0.4, Eos # (Auto) 0.3, Baso # (Auto) 0.0 03/09/21 05:44: Sodium 137, Potassium 3.3 L, Chloride 89 L, Carbon Dioxide 45 H*, Anion Gap 6.3, BUN 15, Creatinine 0.60, Estimated Creat Clear 45, Estimated GFR 95, Est GFR ( Amer) 115, Glucose 95, Calcium 8.5, Total Bilirubin 0.5, AST 26, ALT 13, Alkaline Phosphatase 57, Total Protein 5.6 L, Albumin 2.8 L, Globulin 2.8, Albumin/Globulin Ratio 1.0 L I & O for Last 24 hours: Intake & Output 03/06/21 03/07/21 03/08/21 03/09/21 11:59 11:59 11:59 11:59 Intake Total 800 / 900 320 / 320 240 / 240 900 / 900 Output Total 1750 / 2450 950 / 950 400 / 400 500 / 500 Balance -950 / -1550 -630 / -630 -160 / -160 400 / 400 Weight 152 lb 150 lb 151 lb 8 oz 151 lb 7 oz Microbiology Reports for the Last 24 Hours: Microbiology 03/01/21 01:58 Urine,Catheterized Urine Culture - Final Staphylococcus hominis Strep agalactiae - (group b) - Constitutional no acute distress - *Routine Respiratory Exam Present: decreased breath sounds, CTA bilaterally - *Routine Cardiovascular Exam Present: RRR - *Routine Abdominal Exam Present: soft, normoactive bowel sounds. Absent: tenderness - *Routine Extremities Exam Absent: cyanosis, clubbing, edema - *Routine Skin Exam Present: warm. Absent: rash - *Routine Neurological Exam Present: alert Assessment and Plan (1) Pneumonia Status: Acute Category: Medical Code(s): J18.9 - Pneumonia, unspecified organism (2) Respiratory failure with hypercapnia Status: Acute Qualifiers: Chronicity: acute on chronic Qualified Code(s): J96.22 - Acute and chronic respiratory failure with hypercapnia Category: Medical Code(s): J96.92 - Respiratory failure, unspecified with hypercapnia (3) Severe sepsis with acute organ dysfunction Status: Acute Category: Medical Code(s): A41.9 - Sepsis, unspecified organism; R65.20 - Severe sepsis without septic shock (4) COPD (chronic obstructive pulmonary disease) Status: Chronic Category: Medical Code(s): J44.9 - Chronic obstructive pulmonary disease, unspecified (5) Chronic diastolic (congestive) heart failure Status: Chronic Category: Medical Code(s): I50.32 - Chronic diastolic (congestive) heart failure (6) Hypertension Status: Chronic Category: Medical Code(s): I10 - Essential (primary) hypertension (7) Dysphagia Status: Chronic Category: Medical Code(s): R13.10 - Dysphagia, unspecified (8) Hypokalemia Status: Acute Category: Medical Code(s): E87.6 - Hypokalemia - Assessment and plan all Dx Assessment and Plan for all problems:: Urine has grown Staph hominis and Streptococcus agalactiae. Patient's respiratory status is improving. Will discuss further care with Dr. Enriquez. <Jacob Enriquez - Last Filed: 03/09/21 17:43> Internal Medicine - PN: Subj *Date: 03/09/21
--- NOTE | 2021-03-09 10:20 | HMH.PULMPN ---
Internal Medicine - PN: Subj *Date: 03/09/21 *Time: 10:20 Interval history: No acute respiratory events overnight. Exam - Constitutional Constitutional:: Present: no acute distress, comfortable - HENMT Exam HENMT: Present: normocephalic, atraumatic - Eye Exam Eyes:: Present: normal appearance both eyes and related structures - Neck Exam Neck:: Present: normal visual inspection - Respiratory Exam Respiratory:: Present: able to speak in complete sentences, no respiratory distress, normal respiratory effort. Absent: crackles, wheezing - Cardiovascular Exam Cardiac:: Present: S1, S2 - GI Exam GI:: Present: soft - Skin Exam Skin: Present: warm, no rash, dry - Neurological Exam Neurological: Present: alert, awake, normal cognition - Extremities Exam Extremities: Present: no cyanosis, no clubbing, no edema Assessment and Plan (1) Pneumonia Status: Acute Category: Medical Code(s): J18.9 - Pneumonia, unspecified organism (2) Respiratory failure with hypercapnia Status: Acute Qualifiers: Chronicity: acute on chronic Qualified Code(s): J96.22 - Acute and chronic respiratory failure with hypercapnia Category: Medical Code(s): J96.92 - Respiratory failure, unspecified with hypercapnia (3) Severe sepsis with acute organ dysfunction Status: Acute Category: Medical Code(s): A41.9 - Sepsis, unspecified organism; R65.20 - Severe sepsis without septic shock (4) COPD (chronic obstructive pulmonary disease) Status: Chronic Category: Medical Code(s): J44.9 - Chronic obstructive pulmonary disease, unspecified (5) Chronic diastolic (congestive) heart failure Status: Chronic Category: Medical Code(s): I50.32 - Chronic diastolic (congestive) heart failure (6) Hypertension Status: Chronic Category: Medical Code(s): I10 - Essential (primary) hypertension (7) Dysphagia Status: Chronic Category: Medical Code(s): R13.10 - Dysphagia, unspecified (8) Hypokalemia Status: Acute Category: Medical Code(s): E87.6 - Hypokalemia - Assessment and plan all Dx Assessment and Plan for all problems:: #Hypoxic hypercarbic respiratory failure: #COPD Patient appeared to be lethargic this morning and the blood gas showed severe hypercarbic respiratory failure that improved with BiPAP treatments. Patient presented to the hospital with cardiac respiratory failure and altered mentation. Patient appeared to be a chronic retainer with normal pH and a PCO2 of 80. Her hypercarbic respiratory failure likely from a combination of COPD and decreased respiratory drive from higher oxygen saturations. The possibility of central/obstructive sleep apnea cannot be completely ruled out at this point of time. Given recurrent hypercarbic respiratory failures with altered mentation despite being in the hospital plan was made to initiate the patient on BiPAP awaiting sleep evaluation. Patient was initiated on nightly BiPAP patient was started on 04/28 leading respiratory alkalosis and settings were changed to IPAP of 6 and EPAP of 14 and continue BiPAP nightly until sleep study evaluation Plan: - F/u ABG -Continue BiPAP therapy until sleep study evaluation given her recurrent hypercarbic respiratory failure - BiPAp at IPAP of 6 and EPAP of 14 at RR-14 and FiO2 35%. -DuoNebs every 6 hours scheduled along with budesonide every 12 scheduled, patient should be discharged on triple inhaler therapy - Please schedule a in lab sleep testing post discharge - Wean oxygen to maintain O2 saturations between 88 to 92% and not greater than 94% #Hospital-acquired pneumonia: #Aspiration pneumonia 85-year-old male prior smoker last smoked 25 years ago, not using any inhalers or oxygen at baseline until recently patient was presented for massive hemoptysis admitted to [facility] [place] where she was intubated and bronchial geetha was placed with resolution of hemoptysis. Patient had a bronchoscopy and BAL performed during admission w
[2021-03-09 10:26] LABS: ABG Base Excess 21.5 mmol/L (-2.4-2.3); ABG Oxygen Saturation 99 % (90-100); ABG PCO2 44.7 mmhg (35.0-45.0); ABG PO2 155.7 mmhg (80-100); ABG TCO2 44.4 mmhg (23-27); Source Right Brachial
[2021-03-09 10:27] LABS: Allen's Test Acceptable; Oxygen 2.5L %
--- NOTE | 2021-03-09 18:23 | PC.NURSE ---
PT IS RESTING IN BED. TOLERATED SITTING UP IN THE CHAIR SEVERAL HOURS THIS SHIFT. PT HAS BEEN ALERT AND ORIENTED X4 THIS SHIFT. NO PERIODS OF CONFUSION. EATING AND DRINKING WELL. O2 SATURATION HAS MAINTAINED 90-95% ON 2 L NC. PER RESPIRATORY THERAPY STATED HE ONLY WANTS PT ON BIPAP FOR 4 HOURS THIS EVENING. LUNG SOUNDS DIMINISHED. ABDOMEN SOFT/NON TENDER WITH ACTIVE BOWEL SOUNDS. PT REQUIRES SOME ASSISTANCE WITH TURNING AND REPOSITIONING WHILE IN BED. VSS. WILL CONTINUE TO MONITOR.
--- NOTE | 2021-03-09 21:15 | PC.NURSE ---
trash pulled, pt turned and changed at this time
[2021-03-10] VITALS (10 sets, daily range): BP systolic 129–168; BP diastolic 48–64; PULSE 50–93; RESP 14–20; TEMP 36.6–36.8; O2SAT 89–94; BMI 26.2
--- NOTE | 2021-03-10 08:41 | HMH.ACPN2 ---
<Aretha Hawthorne - Last Filed: 03/10/21 08:41> Internal Medicine - PN: Subj *Date: 03/10/21 *Time: 08:41 Interval history: Patient states she is feeling better this morning. She ate breakfast and slept well last night. She denies any pain, shortness of breath, or cough. Exam Vital signs and Labs for Last 24 Hours: Temp Pulse Resp BP Pulse Ox 98.2 F 93 H 17 155/48 H 89 L 03/10/21 04:00 03/10/21 06:39 03/10/21 04:00 03/10/21 04:00 03/10/21 06:39 Laboratory Results - last 24 hr 03/09/21 09:20: Specimen Source Right brachial, O2 % 2.5l, ABG pH 7.60 H*, ABG pCO2 44.7, ABG pO2 155.7 H, ABG HCO3 43.0 H, ABG Total CO2 44.4 H, ABG O2 Saturation 99, ABG Base Excess 21.5 H, Joey Test Acceptable I & O for Last 24 hours: Intake & Output 03/07/21 03/08/21 03/09/21 03/10/21 11:59 11:59 11:59 11:59 Intake Total 320 / 320 240 / 240 1140 / 1140 660 / 660 Output Total 950 / 950 400 / 400 500 / 500 400 / 400 Balance -630 / -630 -160 / -160 640 / 640 260 / 260 Weight 150 lb 151 lb 8 oz 151 lb 7 oz 148 lb Microbiology Reports for the Last 24 Hours: Microbiology 03/01/21 01:58 Urine,Catheterized Urine Culture - Final Staphylococcus hominis Strep agalactiae - (group b) - Constitutional no acute distress - *Routine Respiratory Exam Present: decreased breath sounds. Absent: rales - *Routine Cardiovascular Exam Present: RRR - *Routine Abdominal Exam Present: soft, normoactive bowel sounds. Absent: tenderness - *Routine Extremities Exam Absent: cyanosis, clubbing, edema - *Routine Skin Exam Present: warm. Absent: rash - *Routine Neurological Exam Present: alert Assessment and Plan (1) Pneumonia Status: Acute Category: Medical Code(s): J18.9 - Pneumonia, unspecified organism (2) Respiratory failure with hypercapnia Status: Acute Qualifiers: Chronicity: acute on chronic Qualified Code(s): J96.22 - Acute and chronic respiratory failure with hypercapnia Category: Medical Code(s): J96.92 - Respiratory failure, unspecified with hypercapnia (3) Severe sepsis with acute organ dysfunction Status: Acute Category: Medical Code(s): A41.9 - Sepsis, unspecified organism; R65.20 - Severe sepsis without septic shock (4) COPD (chronic obstructive pulmonary disease) Status: Chronic Category: Medical Code(s): J44.9 - Chronic obstructive pulmonary disease, unspecified (5) Chronic diastolic (congestive) heart failure Status: Chronic Category: Medical Code(s): I50.32 - Chronic diastolic (congestive) heart failure (6) Hypertension Status: Chronic Category: Medical Code(s): I10 - Essential (primary) hypertension (7) Dysphagia Status: Chronic Category: Medical Code(s): R13.10 - Dysphagia, unspecified (8) Hypokalemia Status: Acute Category: Medical Code(s): E87.6 - Hypokalemia - Assessment and plan all Dx Assessment and Plan for all problems:: Patient may be stable to be discharged to the skilled nursing. She will need BiPAP. Will discuss with care management. <Jacob Enriquez - Last Filed: 03/10/21 13:41> Internal Medicine - PN: Subj *Date: 03/10/21 *Time: 13:39 Exam Vital signs and Labs for Last 24 Hours: Temp Pulse Resp BP Pulse Ox 97.8 F 61 18 129/55 L 91 L 03/10/21 11:35 03/10/21 11:35 03/10/21 11:35 03/10/21 11:35 03/10/21 11:35 I & O for Last 24 hours: Intake & Output 03/08/21 03/09/21 03/10/21 03/11/21 11:59 11:59 11:59 11:59 Intake Total 240 / 240 1140 / 1140 1020 / 1020 600 / 600 Output Total 400 / 400 500 / 500 400 / 400 700 / 700 Balance -160 / -160 640 / 640 620 / 620 -100 / -100 Weight 151 lb 8 oz 151 lb 7 oz 148 lb Assessment and Plan (1) Pneumonia Status: Acute Category: Medical Code(s): J18.9 - Pneumonia, unspecified organism (2) Respiratory failure with hypercapnia Status: Acute Qualifiers: Ch
--- NOTE | 2021-03-10 12:15 | [facility].PULMPN ---
Internal Medicine - PN: Subj *Date: 03/10/21 *Time: 12:15 Interval history: No acute respiratory events overnight. Patient denies any new respiratory complaints. Exam - Constitutional Constitutional:: Present: no acute distress, comfortable - HENMT Exam HENMT: Present: normocephalic, atraumatic - Neck Exam Neck:: Present: normal visual inspection - Respiratory Exam Respiratory:: Present: able to speak in complete sentences, normal breath sounds, no respiratory distress, normal respiratory effort. Absent: wheezing - Cardiovascular Exam Cardiac:: Present: S1, S2 - GI Exam GI:: Present: soft - Skin Exam Skin: Present: warm, no rash, dry - Neurological Exam Neurological: Present: alert, awake, normal cognition - Extremities Exam Extremities: Present: no cyanosis, no clubbing, no edema Assessment and Plan (1) Pneumonia Status: Acute Category: Medical Code(s): J18.9 - Pneumonia, unspecified organism (2) Respiratory failure with hypercapnia Status: Acute Qualifiers: Chronicity: acute on chronic Qualified Code(s): J96.22 - Acute and chronic respiratory failure with hypercapnia Category: Medical Code(s): J96.92 - Respiratory failure, unspecified with hypercapnia (3) Severe sepsis with acute organ dysfunction Status: Acute Category: Medical Code(s): A41.9 - Sepsis, unspecified organism; R65.20 - Severe sepsis without septic shock (4) COPD (chronic obstructive pulmonary disease) Status: Chronic Category: Medical Code(s): J44.9 - Chronic obstructive pulmonary disease, unspecified (5) Chronic diastolic (congestive) heart failure Status: Chronic Category: Medical Code(s): I50.32 - Chronic diastolic (congestive) heart failure (6) Hypertension Status: Chronic Category: Medical Code(s): I10 - Essential (primary) hypertension (7) Dysphagia Status: Chronic Category: Medical Code(s): R13.10 - Dysphagia, unspecified (8) Hypokalemia Status: Acute Category: Medical Code(s): E87.6 - Hypokalemia - Assessment and plan all Dx Assessment and Plan for all problems:: #Hypoxic hypercarbic respiratory failure: #COPD Patient appeared to be lethargic this morning and the blood gas showed severe hypercarbic respiratory failure that improved with BiPAP treatments. Patient presented to the hospital with cardiac respiratory failure and altered mentation. Patient appeared to be a chronic retainer with normal pH and a PCO2 of 80. Her hypercarbic respiratory failure likely from a combination of COPD and decreased respiratory drive from higher oxygen saturations. The possibility of central/obstructive sleep apnea cannot be completely ruled out at this point of time. Given recurrent hypercarbic respiratory failures with altered mentation despite being in the hospital plan was made to initiate the patient on BiPAP awaiting sleep evaluation. Patient was initiated on nightly BiPAP patient was started on 04/28 leading respiratory alkalosis and settings were changed to IPAP of 6 and EPAP of 14 and patient continued to show respiratory alkalosis and the plan was made to decrease the pressure to 12/6 along with decrease duration of BiPAP to a total of 4 hours per night the plan to repeat the blood gas and follow with the sleep study. Plan: -Continue BiPAP therapy until sleep study evaluation given her recurrent hypercarbic respiratory failure - BiPAp 4 hours nightly at IPAP of 6 and EPAP of 12 at RR-14 and FiO2 30%. -DuoNebs every 6 hours scheduled along with budesonide every 12 scheduled, patient should be discharged on triple inhaler therapy - Please schedule a in lab sleep testing post discharge - Wean oxygen to maintain O2 saturations between 88 to 92% and not greater than 94% #Hospital-acquired pneumonia: #Aspiration pneumonia 85-year-old male prior smoker last smoked 25 years ago, not using any inhalers or oxygen at baseline until recently patient was presented for massive hemoptysis ad
[2021-04-24 11:18] LABS: POC Glucose,Bedside 111 (70-110)
== END 2021-03-10 18:00 | DRG 871 ==
LOC: ER 01:57 → 2ND 05:50
PROVIDERS: Internal Medicine Gastroenterology; Internal Medicine Pulmonary Disease; Nurse Practitioner Family; Admitting Provider Family Medicine; Emergency Provider Emergency Medicine; PCP Internal Medicine; Visit Provider Family Medicine
PROC: 0DJ08ZZ Inspection of Upper Intestinal Tract, Via Natural or Artificial Opening Endoscopic (ICD-10-PCS; CPT 43235; principal; 2021-03-06 15:00)
DX: A41.9 Sepsis, unspecified organism (principal); J18.9 Pneumonia, unspecified organism; J96.22 Acute and chronic respiratory failure with hypercapnia; I50.32 Chronic diastolic (congestive) heart failure; N39.0 Urinary tract infection, site not specified; R64 Cachexia; J90 Pleural effusion, not elsewhere classified; R65.10 Systemic inflammatory response syndrome (SIRS) of non-infectious origin without acute organ dysfunction; I11.0 Hypertensive heart disease with heart failure; Z87.891 Personal history of nicotine dependence; Z95.0 Presence of cardiac pacemaker; I48.91 Unspecified atrial fibrillation; Z88.0 Allergy status to penicillin; Z88.1 Allergy status to other antibiotic agents; Z79.899 Other long term (current) drug therapy; K22.4 Dyskinesia of esophagus; E87.6 Hypokalemia; R13.12 Dysphagia, oropharyngeal phase; I77.1 Stricture of artery; Z68.26 Body mass index [BMI] 26.0-26.9, adult
CPT/HCPCS: 43249; 36415; 36569; 70371; 71045; 71046; 80048; 80053; 81001; 82803; 82962; 83605; 83880; 84145; 84484; 85025; 85651; 86140; 87040; 87086; 87088; 87186; 87581; 87633; 87798; 92611; 93005; 93306; 94640; 94660; 94760; 94761; 96365; 96367; 96375; 97110; 97116; 97140; 97161; 97165; 97530; 97535; 99285; C1726; C1751; J1335; U0003